=== PATIENT | female | born 1990 | race African-American/Black ===

== ENCOUNTER 2016-05-30 07:08 | Inpatient (IN) | payer BC ==
[~2016-05-30] VITALS: Ht 157.5 cm; Wt 69.4 kg
[2016-05-30] VITALS (7 sets, daily range): BP systolic 97–121; BP diastolic 60–73
[~2016-05-30 07:08] MED LIST: DOCU-27 PO; Ibuprofen PO; ONDA4TAB10 SL; Oxycodone Hcl/Acetaminophen PO; PNV1TABL25 PO; PREN1TAB58 PO; PROM25SU32 PO
[2016-05-30] MEDS ORDERED: IV RINGERS,LACTATED 1000ML 1,000 ML IV SCH ×2 (07:18→07:59)
[2016-05-30] MEDS ORDERED: CITRIC ACID/SODIUM CITRATE 30 ML SOLUTION. PO ONE (07:30)
[2016-05-30 08:00] LABS: HEMATOCRIT 29.5 % (36.0-47.0); HEMOGLOBIN 9.4 g/dL (12.0-15.5); RED BLOOD COUNT 3.54 x10^6/uL (3.50-5.40); RED CELL DISTRIBUTION WIDTH 15.4 % (11.5-14.5); WHITE BLOOD COUNT 10.9 x10^3/uL (4.0-11.0)
[2016-05-30] MEDS ORDERED: ATROPINE 0.5 MG/5 ML DISP.SYRIN. IV PRN (08:00)
[2016-05-30] MEDS ORDERED: ONDANSETRON PF 4 MG/2 ML VIAL. IV PRN ×2 (08:00→11:15)
[2016-05-30] MEDS ORDERED: PROCHLORPERAZINE 10 MG/2 ML VIAL. IV PRN (08:00)
[2016-05-30] MEDS ORDERED: NALOXONE 0.4 MG/ML VIAL. IV PRN (08:00)
[2016-05-30] MEDS ORDERED: CEFAZOLIN 2GM PREMIX 50 ML IV ONE (08:00)
[2016-05-30] MEDS ORDERED: MORPHINE SULFATE 2 MG/ML DISP.SYRIN. IV PRN (08:00)
[2016-05-30] MEDS ORDERED: HYDROMORPHONE 2 MG/ML VIAL. IV PRN (08:00)
[2016-05-30] MEDS ORDERED: FENTANYL PF 100 MCG/2 ML VIAL. IV PRN ×2 (08:00)
[2016-05-30] MEDS ORDERED: LIDOCAINE 1% 1 ML SYRINGE. ID PRN (08:00)
[2016-05-30] MEDS: IV RINGERS,LACTATED 1000ML 1,000 ML IV SCH ×2 (09:01→19:55)
--- NOTE | 2016-05-30 09:51 | PDOC1 ---
OB - History Hx of Present Care: Good Care Ultrasounds: Normal mid trimester US Obstetrical Complications: None Medical Complications: None Past Family/Social History * Past Medical, Surgical, Family and Obstetric Histories reviewed from chart. Rubella: Immune RPR/VDRL: Negative GBS Status: Negative HBsAG: Negative OB - Chief Complaint & HPI Date of Admission: Date of Admission: May 30, 2016 at 07:08 Chief Complaint/History : 2 Para: 1 EGA: 39 Reason for admission: section Indication for : desires repeat Admission Nurse Assessment Rev: Yes Problems: OB - Admission Exam Physical Exam HEENT: Normal Heart: Regular Rate Lungs: Clear Abdomen: Gravid, Non tender, Soft Extremities: Edema Reflexes: Normal Cervical Dilatation: 1cm Effacement: 25% Station: Ballotable Membranes: Intact Heart Rate: Normal Accelerations: Accelerations Present Decelerations: No decelerations Contractions on Admission: >10 Minutes Apart Intensity: Mild Text A: 39 wks IUP Previous c/s P: Admit for repeat c/s. GABRIEL ÁLVAREZ Jr, MD May 30, 2016 09:51
[2016-05-30] MEDS ORDERED: ONDANSETRON PF 4 MG/2 ML VIAL. ONE (09:58)
[2016-05-30] MEDS ORDERED: FAMOTIDINE 20 MG/2 ML VIAL ONE (09:58)
[2016-05-30] MEDS ORDERED: MORPHINE PF 5 MG/10 ML VIAL. ONE (09:59)
[2016-05-30] MEDS ORDERED: OXYTOCIN 10 UNIT/ML VIAL. ONE ×2 (09:59→10:35)
[2016-05-30] MEDS ORDERED: FENTANYL PF 100 MCG/2 ML VIAL. ONE (09:59)
[2016-05-30] MEDS ORDERED: SUCCINYLCHOLINE 200 MG/10 ML VIAL. ONE (09:59)
--- NOTE | 2016-05-30 11:05 | PDOC4 ---
OB Operative Note PRE OP DIAGNOSIS: Previoujs C- section POST OP DIAGNOSIS: Previoujs C- section OPERATION PERFORMED: R [facility] Surgeon Dr. Keller Anesthesia: Regional (Spinal) Blood Loss 500 ml Specimen placenta and infant OB Findings: Position (Vertex), Sex (Female), (8/9), Weight (2940 Gram) Complications none Additional Remarks ptGABRIEL Chavis Jr, MD May 30, 2016 11:05
[2016-05-30] MEDS ORDERED: OXYTOCIN 30 UNIT/500 ML PREMIX 500 ML IV PRN (11:15)
[2016-05-30] MEDS ORDERED: ZOLPIDEM 5 MG TABLET. PO PRN (11:15)
[2016-05-30] MEDS ORDERED: OXYCODONE/APAP 5/325 TABLET. PO PRN (11:15)
[2016-05-30] MEDS ORDERED: 0.9 % SODIUM CHLORIDE 10 ML DISP.SYRIN. IV PRN (11:15)
[2016-05-30] MEDS ORDERED: MAG HYDROX/AL HYDROX/SIMETH 30 ML ORAL.SUSP PO PRN (11:15)
[2016-05-30] MEDS ORDERED: SIMETHICONE 80 MG TAB.CHEW PO PRN (11:15)
[2016-05-30] MEDS ORDERED: DIPHENHYDRAMINE ORAL ELIXIR 12.5 MG/5 ML. PO PRN (11:15)
[2016-05-30] MEDS: KETOROLAC TROMETHAMINE 30 MG/ML SYRINGE. IV PRN (13:39)
[2016-05-30] MEDS ORDERED: FERROUS SULFATE 325 MG TABLET PO SCH (17:00)
--- NOTE | 2016-05-30 22:03 | OP ---
DATE OF SURGERY: PREOPERATIVE DIAGNOSES: 1. Previous . 2. 39 weeks intrauterine . POSTOPERATIVE DIAGNOSES: 1. Previous . 2. 39 weeks intrauterine . PROCEDURE: Repeat low transverse section. SURGEON: Gabriel Keller MD. ANESTHESIA: Spinal. ESTIMATED BLOOD LOSS: 500 mL. COMPLICATIONS: None. FINDINGS: Viable female , Apgars 8 and 9, weight 2940 grams. Three-vessel cord placenta spontaneously intact. SUMMARY: A 26-year-old 2, para 1 at 39 weeks who presented for repeat section. She was counseled on risks, benefits and expectations of repeat section and voiced clear understanding to proceed. DESCRIPTION OF PROCEDURE: The patient was taken to surgery suite and placed in dorsal supine position. She was prepped with ChloraPrep and draped in sterile fashion. After adequate anesthesia, the previous Pfannenstiel skin incision was removed with the aid of a scalpel, Allis clamps and Bovie cautery. We then proceeded with scalpel incision through the fascia. Fascia was extended laterally using curved Armijo scissors. The superior edge of the fascia was grasped with 2 Leana clamps and dissected free of the abdominal rectus muscles using blunt dissection along with Bovie cautery. The same process took place inferiorly. The peritoneum was partially opened and was further incised with Metzenbaum scissors superiorly as well as inferiorly. The Chinmay ring retractor was placed. Low transverse hysterotomy incision was made with scalpel down to the amniotic sac. Hysterotomy incision was extended laterally and superiorly digitally. Amniotomy was performed with Allis clamp, which elicited a large amount of clear fluid. With fundal pressure, the 's head was delivered in a smooth atraumatic manner. With additional fundal pressure, the anterior shoulder was delivered followed by posterior shoulder and rest of the female infant was delivered. was suctioned with bulb syringe orally and nasally, umbilical cord was clamped twice and cut. A viable female was handed to awaiting nursing staff. Umbilical cord blood was then obtained. Three-vessel cord placenta was delivered spontaneously intact. The uterus was exteriorized, cleared of clot and debris with a moist lap. The hysterotomy incision was reapproximated using 1-0 Vicryl suture in a running locked fashion. An imbricated layer of 1-0 Vicryl suture was utilized as well for good hemostasis. The uterus palpated firm. Fallopian tubes and ovaries appeared normal bilaterally. Posterior cul-de-sac was cleared of clot and debris with moist laps. The uterus was returned to the abdomen. Pericolic gutters were cleared of clot and debris with a moist lap. Interceed was placed over the hysterotomy incision in an inverted T fashion. The Chinmay ring retractor was removed. The peritoneum was reapproximated using 1-0 Vicryl suture in running fashion. Fascia was reapproximated using 0 Vicryl suture in a running fashion. Skin was reapproximated using 4-0 Vicryl suture in subcuticular manner. The patient tolerated the procedure well and was taken to recovery room in stable condition. Sponge and needle counts correct x 3. GABRIEL KELLER MD DR: MARTINE/rozina JOB#: [id number] / [id number]
[2016-05-31 03:13] VITALS: BP 111/62
[2016-05-31] MEDS: KETOROLAC TROMETHAMINE 30 MG/ML SYRINGE. IV PRN (05:35)
[2016-05-31 05:47] LABS: BASO # 0.1 x10^3/uL (0.0-0.2); BASO % 0 % (0-3); EOS % 0 % (0-3); HEMATOCRIT 23.8 % (36.0-47.0); HEMOGLOBIN 7.7 g/dL (12.0-15.5); LYMPH # 1.9 x10^3/uL (1.0-4.8); LYMPH % 15 % (24-48); MEAN CORPUSCULAR HEMOGLOBIN 27 pg (25-35); MEAN CORPUSCULAR HGB CONC 32 g/dL (31-37); MEAN CORPUSCULAR VOLUME 82 fL (79-100); MONO % 5 % (0-9); NEUT % 79 % (31-73); PLATELET COUNT 195 x10^3/uL (140-400); RED BLOOD COUNT 2.91 x10^6/uL (3.50-5.40); RED CELL DISTRIBUTION WIDTH 15.7 % (11.5-14.5); WHITE BLOOD COUNT 13.1 x10^3/uL (4.0-11.0)
[2016-05-31 08:32] VITALS: BP 117/68
[2016-05-31] MEDS: IBUPROFEN 800 MG TABLET. PO PRN ×2 (12:35→20:37)
--- NOTE | 2016-05-31 13:44 | PDOC ---
OB Progress Note Date of Service 05/31/16 Time of Evaluation 1340 Problem List Problems Medical Problems: (1) delivery delivered Status: Acute Notes Pt. feeling well. Pain controlled. Ambulating, voiding and tolerating regular diet. Lochia minimal. Lab Laboratory Tests Test 05/30/16 07:40 05/31/16 05:25 White Blood Count 10.9x10^3/uL (4.0-11.0) 13.1x10^3/uL (4.0-11.0) Red Blood Count 3.54x10^6/uL (3.50-5.40) 2.91x10^6/uL (3.50-5.40) Hemoglobin 9.4g/dL (12.0-15.5) 7.7g/dL (12.0-15.5) Hematocrit 29.5% (36.0-47.0) 23.8% (36.0-47.0) Mean Corpuscular Volume 83fL (79-100) 82fL (79-100) Mean Corpuscular Hemoglobin 27pg (25-35) 27pg (25-35) Mean Corpuscular Hemoglobin Concent 32g/dL (31-37) 32g/dL (31-37) Red Cell Distribution Width 15.4% (11.5-14.5) 15.7% (11.5-14.5) Platelet Count 239x10^3/uL (140-400) 195x10^3/uL (140-400) RPR Titer Additional Testing Non reactive (Non Reactive) Neutrophils (%) (Auto) 79% (31-73) Lymphocytes (%) (Auto) 15% (24-48) Monocytes (%) (Auto) 5% (0-9) Eosinophils (%) (Auto) 0% (0-3) Basophils (%) (Auto) 0% (0-3) Neutrophils # (Auto) 10.4x10^3uL (1.8-7.7) Lymphocytes # (Auto) 1.9x10^3/uL (1.0-4.8) Monocytes # (Auto) 0.7x10^3/uL (0.0-1.1) Eosinophils # (Auto) 0.0x10^3/uL (0.0-0.7) Basophils # (Auto) 0.1x10^3/uL (0.0-0.2) Laboratory Tests Test 05/31/16 05:25 White Blood Count 13.1x10^3/uL (4.0-11.0) Red Blood Count 2.91x10^6/uL (3.50-5.40) Hemoglobin 7.7g/dL (12.0-15.5) Hematocrit 23.8% (36.0-47.0) Mean Corpuscular Volume 82fL (79-100) Mean Corpuscular Hemoglobin 27pg (25-35) Mean Corpuscular Hemoglobin Concent 32g/dL (31-37) Red Cell Distribution Width 15.7% (11.5-14.5) Platelet Count 195x10^3/uL (140-400) Neutrophils (%) (Auto) 79% (31-73) Lymphocytes (%) (Auto) 15% (24-48) Monocytes (%) (Auto) 5% (0-9) Eosinophils (%) (Auto) 0% (0-3) Basophils (%) (Auto) 0% (0-3) Neutrophils # (Auto) 10.4x10^3uL (1.8-7.7) Lymphocytes # (Auto) 1.9x10^3/uL (1.0-4.8) Monocytes # (Auto) 0.7x10^3/uL (0.0-1.1) Eosinophils # (Auto) 0.0x10^3/uL (0.0-0.7) Basophils # (Auto) 0.1x10^3/uL (0.0-0.2) Medications Current Medications Lactated Ringer's 1,000 ml @ 1,000 mls/hr Q1H IV Last administered on 09:00; Start 05/30/16 at 07:18; Stop 05/30/16 at 08:17; Status DC Lactated Ringer's 1,000 ml @ 125 mls/hr Q8H IV Last administered on 05/30/16 19:55; Start 05/30/16 at 07:18 Cefazolin Sodium/ Dextrose (Ancef 2gm Premix) 50 ml @ 100 mls/hr 1X ONCE IV Last administered on 05/30/16 09:01; Start 05/30/16 at 08:00; Stop 05/30/16 at 08: 29; Status DC Citric Acid/ Sodium Citrate (Bicitra) 30 ml 1X ONCE PO ; Start 05/30/16 at 07:30 ; Stop 05/30/16 at 07:31; Status DC Ondansetron HCl (Zofran) 4 mg PRN Q6HRS PRN IV Nausea Last administered on t 14:52; Start 05/30/16 at 08:00; Stop 05/30/16 at 18:00; Status DC Fentanyl Citrate (Fentanyl 2ml Vial) 25 mcg PRN Q5MIN PRN IV MILD PAIN; Start 05/30/16 at 08:00; Stop 05/30/16 at 08:08; Status DC Fentanyl Citrate (Fentanyl 2ml Vial) 50 mcg PRN Q5MIN PRN IV MODERATE PAIN; Start 05/30/16 at 08:00; Stop 05/30/16 at 18:00; Status DC Morphine Sulfate 1 mg 1 mg PRN Q10MIN PRN IV SEVERE PAIN; Start 05/30/16 at 08: 00; Stop 05/30/16 at 18:00; Status DC Lactated Ringer's (Iv Lactated Ringers) 1,000 ml @ 30 mls/hr Q24H IV ; Start at 07:59; Stop 05/30/16 at 19:58; Status DC Lidocaine HCl 2 ml 1X PRN PRN ID IV START; Start 05/30/16 at 08:00; Stop at 18:00; Status DC Hydromorphone HCl (Dilaudid) 0.5 mg PRN Q10MIN PRN IV SEV PAIN,Second choice; Start 05/30/16 at 08:00; Stop 05/30/16 at 18:00; Status DC Prochlorperazine Edisylate (Compazine) 5 mg PACU PRN PRN IV NAUSEA; Start at 08:00; Stop 05/30/16 at 18:00; Status DC Atropine Sulfate 0.5 mg PRN 1X PRN IV SEE COMMENTS; Start 05/30/16 at 08:00; Stop 05/31/16 at 07:59; Status DC Naloxone HCl (Narcan) 0.04 mg PRN Q2MIN PRN IV SEE COMMENTS; Start 05/30/16 at 08:00; Stop 05/30/16 at 18:00; Status DC Ondansetron HCl (Zofran) 4 mg STK-MED ONCE .ROUTE ; Start 05/30/16 at 09:58; Stop 05/30/16 at 09:59; Status DC Famotidine (Pepcid) 20 mg STK-MED ONCE .ROUTE ; Start 05/30/16 at 09:58; Stop 05/30/16 at 09:59; Status DC Fentanyl Citrate (Fentanyl 2ml Vial) 100 mcg STK-MED ONCE .ROUTE ; Start at 09:59; Stop 05/30/16 at 10:00; Status DC Oxytocin (Pitocin) 10 unit STK-MED ONCE .ROUTE ; Start 05/30/16 at 09:59; Stop at 10:00; Status DC Morphine Sulfate (Morphine Preservative Free) 5 mg STK-MED ONCE .ROUTE ; Start 05/30/16 at 09:59; Stop 05/30/16 at 10:00; Status DC Succinylcholine Chloride (Anectine) 200 mg STK-MED ONCE .ROUTE ; Start 05/30/16 at 09:59; Stop 05/30/16 at 10:00; Status DC Oxytocin (Pitocin) 10 unit STK-MED ONCE .ROUTE ; Start 05/30/16 at 10:35; Stop at 10:36; Status DC Sodium Chloride 3 ml 3 ml QSHIFT PRN IV AFTER MEDS AND BLOOD DRAWS; Start at 11:15 Oxytocin/Sodium Chloride (Oxytocin Premix Infusion) 500 ml @ 125 mls/hr CONT PRN IV EXCESSIVE POST- BLEEDING; Start 05/30/16 at 11:15; Stop 05/30/16 at 19:14; Status DC Ibuprofen (Motrin) 800 mg PRN Q8HRS PRN PO INFLAMMATION Last administered on t 12:35; Start 05/30/16 at 11:15 Ondansetron HCl (Zofran) 4 mg PRN Q6HRS PRN IV NAUSEA/VOMITING; Start 05/30/16 at 11:15 Docusate Sodium (Colace) 100 mg PRN BID PRN PO CONSTIPATION; Start 05/30/16 at 11:15 Al Hydroxide/Mg Hydroxide (Mylanta Plus Xs) 30 ml PRN Q4HRS PRN PO HEARTBURN / GAS; Start 05/30/16 at 11:15 Simethicone (Gas-X) 80 mg PRN AFTMEALHC PRN PO GAS / BLOATING; Start 05/30/16 at 11:15 Diphenhydramine HCl (Benadryl Oral Elixir) 12.5 mg PRN Q6HRS PRN PO ITCHING; Start 05/30/16 at 11:15 Ferrous Sulfate (Feosol) 325 mg BIDWMEALS PO ; Start 05/30/16 at 17:00 Zolpidem Tartrate (Ambien) 5 mg PRN QHS PRN PO INSOMNIA, MAY REPEAT X1; Start 05/30/16 at 11:15 Oxycodone/ Acetaminophen (Percocet 5/325) 2 tab PRN Q4HRS PRN PO MODERATE PAIN , SEVERE PAIN; Start 05/30/16 at 11:15 Ketorolac Tromethamine (Toradol) 30 mg PRN Q6HRS PRN IV PAIN Last administered on 05/31/16t 05:35; Start 05/30/16 at 11:15; Stop 06/04/16 at 11:14 Active Scripts Active Vitamins ( Vits W-Ca,Fe,Fa(<1MG)) 1 Each Tablet 1 Each PO DAILY Phenergan (Promethazine HCl) 25 Mg Supp.rect 12.5 Mg PO BID Zofran Odt (Ondansetron) 4 Mg Tab.rapdis 1 Tab SL PRN Q8HRS PRN [Oxycodone Hcl/Acetaminophen] 1 TAB Tablet 2 Tab PO PRN Q4HRS PRN [Ibuprofen] 800 MG Tablet 800 Mg PO PRN Q8HRS PRN Colace (Docusate Sodium) 100 Mg Capsule 100 Mg PO PRN BID PRN Reported Tablet (Pnv Cmb#95/Ferrous Fumarate/Fa) 1 Each Tablet 1 Tab PO DAILY Exam Abd: soft, non tender Bandage in place and will be removed during shower. Assessment POD#1 s/p repeat c/s Plan of Care: Continue current Tx, Mgmt GABRIEL ÁLVAREZ Jr, MD May 31, 2016 13:44
[2016-05-31 13:45] VITALS: BP 109/65
[2016-05-31] MEDS: DOCUSATE SODIUM 100 MG CAPSULE PO PRN (20:37)
[2016-05-31 23:00] VITALS: BP 113/70
[2016-06-01] MEDS: IBUPROFEN 800 MG TABLET. PO PRN (06:05)
[2016-06-01 06:23] VITALS: BP 123/76
[2016-06-01] MEDS: DOCUSATE SODIUM 100 MG CAPSULE PO PRN (09:06)
[2016-06-01 09:40] VITALS: BP 107/72
[2016-06-01 12:16] VITALS: BP 108/71
--- NOTE | 2016-06-01 12:43 | PDOC ---
OB Progress Note Date of Service 06/01/16 Time of Evaluation 1240 Problem List Problems Medical Problems: (1) delivery delivered Status: Acute Notes Pt. feeling well. Pain controlled. No complaints. Lab Laboratory Tests Test 05/31/16 05:25 White Blood Count 13.1x10^3/uL (4.0-11.0) Red Blood Count 2.91x10^6/uL (3.50-5.40) Hemoglobin 7.7g/dL (12.0-15.5) Hematocrit 23.8% (36.0-47.0) Mean Corpuscular Volume 82fL (79-100) Mean Corpuscular Hemoglobin 27pg (25-35) Mean Corpuscular Hemoglobin Concent 32g/dL (31-37) Red Cell Distribution Width 15.7% (11.5-14.5) Platelet Count 195x10^3/uL (140-400) Neutrophils (%) (Auto) 79% (31-73) Lymphocytes (%) (Auto) 15% (24-48) Monocytes (%) (Auto) 5% (0-9) Eosinophils (%) (Auto) 0% (0-3) Basophils (%) (Auto) 0% (0-3) Neutrophils # (Auto) 10.4x10^3uL (1.8-7.7) Lymphocytes # (Auto) 1.9x10^3/uL (1.0-4.8) Monocytes # (Auto) 0.7x10^3/uL (0.0-1.1) Eosinophils # (Auto) 0.0x10^3/uL (0.0-0.7) Basophils # (Auto) 0.1x10^3/uL (0.0-0.2) Medications Current Medications Lactated Ringer's 1,000 ml @ 1,000 mls/hr Q1H IV Last administered on 09:00; Start 05/30/16 at 07:18; Stop 05/30/16 at 08:17; Status DC Lactated Ringer's 1,000 ml @ 125 mls/hr Q8H IV Last administered on 05/30/16 19:55; Start 05/30/16 at 07:18 Cefazolin Sodium/ Dextrose (Ancef 2gm Premix) 50 ml @ 100 mls/hr 1X ONCE IV Last administered on 05/30/16t 09:01; Start 05/30/16 at 08:00; Stop 05/30/16 at 08: 29; Status DC Citric Acid/ Sodium Citrate (Bicitra) 30 ml 1X ONCE PO ; Start 05/30/16 at 07:30 ; Stop 05/30/16 at 07:31; Status DC Ondansetron HCl (Zofran) 4 mg PRN Q6HRS PRN IV Nausea Last administered on t 14:52; Start 05/30/16 at 08:00; Stop 05/30/16 at 18:00; Status DC Fentanyl Citrate (Fentanyl 2ml Vial) 25 mcg PRN Q5MIN PRN IV MILD PAIN; Start 05/30/16 at 08:00; Stop 05/30/16 at 08:08; Status DC Fentanyl Citrate (Fentanyl 2ml Vial) 50 mcg PRN Q5MIN PRN IV MODERATE PAIN; Start 05/30/16 at 08:00; Stop 05/30/16 at 18:00; Status DC Morphine Sulfate 1 mg 1 mg PRN Q10MIN PRN IV SEVERE PAIN; Start 05/30/16 at 08: 00; Stop 05/30/16 at 18:00; Status DC Lactated Ringer's (Iv Lactated Ringers) 1,000 ml @ 30 mls/hr Q24H IV ; Start at 07:59; Stop 05/30/16 at 19:58; Status DC Lidocaine HCl 2 ml 1X PRN PRN ID IV START; Start 05/30/16 at 08:00; Stop at 18:00; Status DC Hydromorphone HCl (Dilaudid) 0.5 mg PRN Q10MIN PRN IV SEV PAIN,Second choice; Start 05/30/16 at 08:00; Stop 05/30/16 at 18:00; Status DC Prochlorperazine Edisylate (Compazine) 5 mg PACU PRN PRN IV NAUSEA; Start at 08:00; Stop 05/30/16 at 18:00; Status DC Atropine Sulfate 0.5 mg PRN 1X PRN IV SEE COMMENTS; Start 05/30/16 at 08:00; Stop 05/31/16 at 07:59; Status DC Naloxone HCl (Narcan) 0.04 mg PRN Q2MIN PRN IV SEE COMMENTS; Start 05/30/16 at 08:00; Stop 05/30/16 at 18:00; Status DC Ondansetron HCl (Zofran) 4 mg STK-MED ONCE .ROUTE ; Start 05/30/16 at 09:58; Stop 05/30/16 at 09:59; Status DC Famotidine (Pepcid) 20 mg STK-MED ONCE .ROUTE ; Start 05/30/16 at 09:58; Stop 05/30/16 at 09:59; Status DC Fentanyl Citrate (Fentanyl 2ml Vial) 100 mcg STK-MED ONCE .ROUTE ; Start at 09:59; Stop 05/30/16 at 10:00; Status DC Oxytocin (Pitocin) 10 unit STK-MED ONCE .ROUTE ; Start 05/30/16 at 09:59; Stop at 10:00; Status DC Morphine Sulfate (Morphine Preservative Free) 5 mg STK-MED ONCE .ROUTE ; Start 05/30/16 at 09:59; Stop 05/30/16 at 10:00; Status DC Succinylcholine Chloride (Anectine) 200 mg STK-MED ONCE .ROUTE ; Start 05/30/16 at 09:59; Stop 05/30/16 at 10:00; Status DC Oxytocin (Pitocin) 10 unit STK-MED ONCE .ROUTE ; Start 05/30/16 at 10:35; Stop at 10:36; Status DC Sodium Chloride 3 ml 3 ml QSHIFT PRN IV AFTER MEDS AND BLOOD DRAWS; Start at 11:15 Oxytocin/Sodium Chloride (Oxytocin Premix Infusion) 500 ml @ 125 mls/hr CONT PRN IV EXCESSIVE POST- BLEEDING; Start 05/30/16 at 11:15; Stop 05/30/16 at 19:14; Status DC Ibuprofen (Motrin) 800 mg PRN Q8HRS PRN PO INFLAMMATION Last administered on t 06:05; Start 05/30/16 at 11:15 Ondansetron HCl (Zofran) 4 mg PRN Q6HRS PRN IV NAUSEA/VOMITING; Start 05/30/16 at 11:15 Docusate Sodium (Colace) 100 mg PRN BID PRN PO CONSTIPATION Last administered on 06/01/16 09:06; Start 05/30/16 at 11:15 Al Hydroxide/Mg Hydroxide (Mylanta Plus Xs) 30 ml PRN Q4HRS PRN PO HEARTBURN / GAS; Start 05/30/16 at 11:15 Simethicone (Gas-X) 80 mg PRN AFTMEALHC PRN PO GAS / BLOATING; Start 05/30/16 at 11:15 Diphenhydramine HCl (Benadryl Oral Elixir) 12.5 mg PRN Q6HRS PRN PO ITCHING; Start 05/30/16 at 11:15 Ferrous Sulfate (Feosol) 325 mg BIDWMEALS PO Last administered on 06/01/16 09: 06; Start 05/30/16 at 17:00 Zolpidem Tartrate (Ambien) 5 mg PRN QHS PRN PO INSOMNIA, MAY REPEAT X1; Start 05/30/16 at 11:15 Oxycodone/ Acetaminophen (Percocet 5/325) 2 tab PRN Q4HRS PRN PO MODERATE PAIN , SEVERE PAIN; Start 05/30/16 at 11:15 Ketorolac Tromethamine (Toradol) 30 mg PRN Q6HRS PRN IV PAIN Last administered on 05/31/16 05:35; Start 05/30/16 at 11:15; Stop 06/04/16 at 11:14 Active Scripts Active Vitamins ( Vits W-Ca,Fe,Fa(<1MG)) 1 Each Tablet 1 Each PO DAILY Phenergan (Promethazine HCl) 25 Mg Supp.rect 12.5 Mg PO BID Zofran Odt (Ondansetron) 4 Mg Tab.rapdis 1 Tab SL PRN Q8HRS PRN [Oxycodone Hcl/Acetaminophen] 1 TAB Tablet 2 Tab PO PRN Q4HRS PRN [Ibuprofen] 800 MG Tablet 800 Mg PO PRN Q8HRS PRN Colace (Docusate Sodium) 100 Mg Capsule 100 Mg PO PRN BID PRN Reported Tablet (Pnv Cmb#95/Ferrous Fumarate/Fa) 1 Each Tablet 1 Tab PO DAILY Exam Abd: soft, mild tenderness, fundus firm Incision site: clean, dry and intact Assessment POD#2 s/p repeat c/s Plan of Care: See new orders (D/c home.) GABRIEL ÁLVAREZ Jr, MD Jun 01, 2016 12:43
--- NOTE | 2016-06-01 12:43 | DISCH ---
DISCHARGE INSTRUCTIONS Condition on Discharge Condition on Discharge: Stable Activity After Discharge Activity Instructions for Disc: Activity as tolerated Lifting Instructions after Dis: No heavy lifting Driving Instructions after Dis: Do not drive today Diet after Discharge Diet after Discharge: Regular Contacting the DRHolden after DC Call your doctor for: Concerns you may have Follow-Up Follow up with: Dr. Keller in 2 weeks. GABRIEL KELLER Jr, MD Jun 01, 2016 12:43
[2016-06-01] MEDS ORDERED: OXYC-323 PO (12:45)
[2016-06-01] MEDS ORDERED: DOCU-27 PO (12:45)
[2016-06-01] MEDS ORDERED: IBUP-1060 PO (12:45)
== END 2016-06-01 13:50 | disposition home or self-care (01) | DRG 766 ==
LOC: 3 SO LND 07:08 → 3 NORTH 14:30
PROVIDERS: ADMIT Obstetrics & Gynecology; ATTEND Obstetrics & Gynecology
PROC: 10D00Z1 Extraction of Products of Conception, Low, Open Approach (ICD-10-PCS; principal; 2016-05-30)
DX: O34.211 Maternal care for low transverse scar from previous cesarean delivery (principal); Z37.0 Single live birth; Z3A.39 39 weeks gestation of pregnancy
CPT/HCPCS: 36415; 85027; 86593; 86850; 86900; 86901; J0330; J0690; J1885; J2270; J2405; J2590; J3010; J7120; S0028

== ENCOUNTER 2018-06-21 12:28 | Emergency (ER) | payer MEDICAID ==
[~2018-06-21] VITALS: Ht 157.5 cm; Wt 57.2 kg
[~2018-06-21 12:28] MED LIST changes: +DOCU-109 PO; -DOCU-27 PO; +IBUP-1060 PO; +OXYC1TAB15 PO
[2018-06-21 13:28] LABS: BILIRUBIN,URINE SMALL (NEG); CLARITY,URINE CLOUDY; COLOR,URINE AMBER; NITRITE,URINE NEGATIVE (NEG); PROTEIN,URINE 30 mg/dL (NEG-TRACE); UROBILINOGEN,URINE 0.2 mg/dL (0.2 mg/dL)
[2018-06-21] MEDS ORDERED: ONDANSETRON PF 4 MG/2 ML VIAL. IV ONE (13:30)
[2018-06-21] MEDS ORDERED: IV NORMAL SALINE 1000ML BAG 1,000 ML IV ONE (13:30)
[2018-06-21 13:42] LABS: BASO % 0 % (0-3); EOS % 0 % (0-3); HEMATOCRIT 40.5 % (36.0-47.0); HEMOGLOBIN 13.6 g/dL (12.0-15.5); LYMPH # 1.1 x10^3/uL (1.0-4.8); LYMPH % 12 % (24-48); MEAN CORPUSCULAR HEMOGLOBIN 30 pg (25-35); MEAN CORPUSCULAR HGB CONC 34 g/dL (31-37); MEAN CORPUSCULAR VOLUME 91 fL (79-100); MONO # 0.4 x10^3/uL (0.0-1.1); MONO % 4 % (0-9); NEUT # 7.7 x10^3uL (1.8-7.7); NEUT % 83 % (31-73); PLATELET COUNT 267 x10^3/uL (140-400); RED BLOOD COUNT 4.46 x10^6/uL (3.50-5.40); RED CELL DISTRIBUTION WIDTH 14.6 % (11.5-14.5); WHITE BLOOD COUNT 9.3 x10^3/uL (4.0-11.0)
[2018-06-21 13:43] LABS: BACTERIA,URINE MODERATE /HPF (0-FEW); RBC,URINE 0 /HPF (0-2); SQUAMOUS EPITHELIAL CELL,UR OCC /LPF
[2018-06-21 14:07] LABS: CALCIUM 9.5 mg/dL (8.5-10.1); CREATININE 0.6 mg/dL (0.6-1.0); GFR 146.2; POTASSIUM 3.8 mmol/L (3.5-5.1)
[2018-06-21 14:11] LABS: ALBUMIN/GLOBULIN RATIO 0.9 (1.0-1.7); TOTAL BILIRUBIN 0.9 mg/dL (0.2-1.0); TOTAL PROTEIN 8.6 g/dL (6.4-8.2)
--- NOTE | 2018-06-21 14:46 | RAD ---
Examination: Obstetric ultrasound less than 14 weeks HISTORY: History of vomiting, abdominal pain COMPARISON: None available FINDINGS: The uterus measures 8.7 x 1.6 x 6.6 cm. The left ovary measures 2.1 x 1.7 x 2.1 cm. Blood flow identified in the left ovary. Single living intrauterine identified with heart rate of 171 bpm. The crown-rump length measures 2.0 cm corresponding to 8 weeks and 4 days. Given LMP 05/05/2018. Clinical age 6 weeks and 5 days with estimated date of delivery 02/09/2019. Ultrasound age is 8 weeks and 4 days with estimated date of delivery by ultrasound in 01/27/2019. IMPRESSION: 1. Single living intrauterine with heart rate of 171 bpm. Electronically signed by: Armando Macias MD (06/21/2018 2:43 PM) [email or web address]
[2018-06-21 15:30] VITALS: BP 109/62
--- NOTE | 2018-06-21 15:36 | PHYS DOC ---
Past Medical History Past Medical History: No Pertinent History Past Surgical History: Other Additional Past Surgical Histo: C-SECTIONx2 Alcohol Use: None Drug Use: None Adult General Chief Complaint Chief Complaint: VOMITING IN HPI HPI Patient is a 28 year old female who presents complaining of nausea, vomiting, possible , and slight low back and abdominal pain that began couple days ago. Patient is concerned she could be . Last menstrual cycle was May 01, 2018. She's had 2 pregnancies before this will be the third one. Denies any vaginal bleeding. Denies any unusual discharge or concerns for STDs. Review of Systems Review of Systems Constitutional: Denies fever or chills [] Eyes: Denies change in visual acuity, redness, or eye pain [] HENT: Denies nasal congestion or sore throat [] Respiratory: Denies cough or shortness of breath [] Cardiovascular: No additional information not addressed in HPI [] GI: Reports abdominal pain, nausea, vomiting, denies bloody stools or diarrhea [ ] : Denies dysuria or hematuria [] Musculoskeletal: Reports slight low back pain, denies joint pain [] Integument: Denies rash or skin lesions [] Neurologic: Denies headache, focal weakness or sensory changes [] All other systems were reviewed and found to be within normal limits, except as documented in this note. Current Medications Current Medications Current Medications Medications (Trade) Dose Ordered Sig/Sara Start Time Stop Time Status Last Admin Dose Admin Ondansetron HCl (Zofran) 4 mg 1X ONCE 06/21/18 13:30 06/21/18 13:31 DC 06/21/18 13:36 4 MG Sodium Chloride 1,000 ml @ 1,000 mls/hr 1X ONCE 06/21/18 13:30 06/21/18 14:29 DC 06/21/18 13:37 1,000 MLS/HR Allergies Allergies Allergies Coded Allergies Type Severity Reaction Last Updated Verified No Known Drug Allergies 07/08/14 No Physical Exam Physical Exam Constitutional: Well developed, well nourished, no acute distress, non-toxic appearance. [] HENT: Normocephalic, atraumatic, bilateral external ears normal, oropharynx moist, no oral exudates, nose normal. [] Eyes: PERRLA, EOMI, conjunctiva normal, no discharge. [] Neck: Normal range of motion, no tenderness, supple, no stridor. [] Cardiovascular:Heart rate regular rhythm, no murmur [] Lungs & Thorax: Bilateral breath sounds clear to auscultation [] Abdomen: Bowel sounds normal, soft, no tenderness, no masses, no pulsatile masses. [] Skin: Warm, dry, no erythema, no rash. [] Back: No tenderness, no CVA tenderness. [] Extremities: No tenderness, no cyanosis, no clubbing, ROM intact, no edema. [] Neurologic: Alert and oriented X 3, normal motor function, normal sensory function, no focal deficits noted. [] Psychologic: Affect normal, judgement normal, mood normal. [] Current Patient Data Vital Signs Vital Signs Date Time Temp Pulse Resp B/P (MAP) Pulse Ox O2 Delivery O2 Flow Rate FiO2 06/21/18 12:28 98.1 101 17 115/64 (81) 99 Room Air 98.1 Lab Values Laboratory Tests Test 06/21/18 12:50 06/21/18 13:11 06/21/18 13:20 Urine Color Shanta Urine Clarity Cloudy Urine pH 6.0 Urine Specific [place] >=1.030 Urine Protein 30 mg/dL (NEG-TRACE) Urine Glucose (UA) Negative mg/dL (NEG) Urine Ketones (Stick) >=80 mg/dL (NEG) Urine Blood Negative (NEG) Urine Nitrite Negative (NEG) Urine Bilirubin Small (NEG) Urine Urobilinogen Dipstick 0.2 mg/dL (0.2 mg/dL) Urine Leukocyte Esterase Negative (NEG) Urine RBC 0 /HPF (0-2) Urine WBC 1-4 /HPF (0-4) Urine Squamous Epithelial Cells Occ /LPF Urine Bacteria Moderate /HPF (0-FEW) Urine Mucus Mod /LPF POC Urine HCG, Qualitative Hcg positive (Negative) White Blood Count 9.3 x10^3/uL (4.0-11.0) Red Blood Count 4.46 x10^6/uL (3.50-5.40) Hemoglobin 13.6 g/dL (12.0-15.5) Hematocrit 40.5 % (36.0-47.0) Mean Corpuscular Volume 91 fL (79-100) Mean Corpuscular Hemoglobin 30 pg (25-35) Mean Corpuscular Hemoglobin Concent 34 g/dL (31-37) Red Cell Distribution Width 14.6 % (11.5-14.5) H Platelet Count 267 x10^3/uL (140-400) Neutrophils (%) (Auto) 83 % (31-73) H Lymphocytes (%) (Auto) 12 % (24-48) L Monocytes (%) (Auto) 4 % (0-9) Eosinophils (%) (Auto) 0 % (0-3) Basophils (%) (Auto) 0 % (0-3) Neutrophils # (Auto) 7.7 x10^3uL (1.8-7.7) Lymphocytes # (Auto) 1.1 x10^3/uL (1.0-4.8) Monocytes # (Auto) 0.4 x10^3/uL (0.0-1.1) Eosinophils # (Auto) 0.0 x10^3/uL (0.0-0.7) Basophils # (Auto) 0.0 x10^3/uL (0.0-0.2) Maternal Serum HCG Beta Subunit 196651 mIU/mL (0-5) H Sodium Level 139 mmol/L (136-145) Potassium Level 3.8 mmol/L (3.5-5.1) Chloride Level 101 mmol/L (98-107) Carbon Dioxide Level 20 mmol/L (21-32) L Anion Gap 18 (6-14) H Blood Urea Nitrogen 9 mg/dL (7-20) Creatinine 0.6 mg/dL (0.6-1.0) Estimated GFR (Cockcroft-Gault) 146.2 BUN/Creatinine Ratio 15 (6-20) Glucose Level 73 mg/dL (70-99) Calcium Level 9.5 mg/dL (8.5-10.1) Total Bilirubin 0.9 mg/dL (0.2-1.0) Aspartate Amino Transferase (AST) 18 U/L (15-37) Alanine Aminotransferase (ALT) 17 U/L (14-59) Alkaline Phosphatase 65 U/L (46-116) Total Protein 8.6 g/dL (6.4-8.2) H Albumin 4.0 g/dL (3.4-5.0) Albumin/Globulin Ratio 0.9 (1.0-1.7) L Laboratory Tests 06/21/18 13:20 Laboratory Tests 06/21/18 13:20 EKG EKG [] Radiology/Procedures Radiology/Procedures []PROCEDURE: OB < 14 WKS Examination: Obstetric ultrasound less than 14 weeks HISTORY: History of vomiting, abdominal pain COMPARISON: None available FINDINGS: The uterus measures 8.7 x 1.6 x 6.6 cm. The left ovary measures 2.1 x 1.7 x 2.1 cm. Blood flow identified in the left ovary. Single living intrauterine identified with heart rate of 171 bpm. The crown-rump length measures 2.0 cm corresponding to 8 weeks and 4 days. Given LMP 05/05/2018. Clinical age 6 weeks and 5 days with estimated date of delivery 02/09/2019. Ultrasound age is 8 weeks and 4 days with estimated date of delivery by ultrasound in 01/27/2019. IMPRESSION: 1. Single living intrauterine with heart rate of 171 bpm. Electronically signed by: Armando Macias MD (06/21/2018 2:43 PM) [facility] DICTATED and SIGNED BY: ARMANDO MACIAS MD DATE: 06/21/18 1438 Course & Med Decision Making Course & Med Decision Making Pertinent Labs and Imaging studies reviewed. (See chart for details) This is a 28-year-old female patient presented to the ED today with abdominal pain, nausea, vomiting, concern for . Positive urine hCG, beta-hCG 132, 437. Urine analysis is noted for bacteria-dc with cephalexin. OB ultrasound noted for IUP heart rate 171, 8 weeks. Follow-up with SALES TECHNICIAN as soon as possible. Dragon Disclaimer Dragon Disclaimer This electronic medical record was generated, in whole or in part, using a voice recognition dictation system. Departure Departure Impression: Primary Impression: Nausea and vomiting in Additional Impression: UTI (urinary tract infection) Disposition: 01 HOME, SELF-CARE Condition: STABLE Referrals: NO PCP (PCP) GABRIEL ÁLVAREZ Jr, MD Follow-up in one week Patient Instructions: Hyperemesis Gravidarum, - Urinary Tract Infection Additional Instructions: You were evaluated in the emergency room, you have urinary tract infection, we put you on antibiotics, ensure you complete them. Take Tylenol as needed for pain. We put you and Zofran for nausea vomiting follow-up with your SALES TECHNICIAN. Scripts Ondansetron Hcl (ZOFRAN) 4 Mg Tablet 1 TAB PO Q6HRS PRN for NAUSEA, #30 TAB Prov: ERROL MARINO APRN 06/21/18 Cephalexin (CEPHALEXIN) 500 Mg Capsule 1 CAP PO BID, #14 CAP Prov: ERROL MARINO APRN 06/21/18 Problem Qualifiers Additional Impression: UTI (urinary tract infection) Urinary tract infection type: site unspecified Hematuria presence: without hematuria Qualified Codes: N39.0 - Urinary tract infection, site not specified ERROL MARINO APRN Jun 21, 2018 15:36
[2018-06-21] MEDS ORDERED: ONDA4TAB7 PO (15:58)
[2018-06-21] MEDS ORDERED: CEPH500C PO (15:58)
== END 2018-06-21 16:13 | disposition home or self-care (01) ==
LOC: ER 12:28
DX: O23.41 Unspecified infection of urinary tract in pregnancy, first trimester (principal); O21.9 Vomiting of pregnancy, unspecified; Z3A.01 Less than 8 weeks gestation of pregnancy
CPT/HCPCS: 36415; 76801; 80053; 81001; 81025; 84702; 85025; 87086; 96361; 96374; 99284; J2405; J7030

== ENCOUNTER 2018-12-27 16:26 | Inpatient (IN) | payer OTHER ==
[~2018-12-27] VITALS: Ht 157.5 cm; Wt 71.7 kg
[~2018-12-27 16:26] MED LIST changes: +CEPH500C PO; +ONDA4TAB7 PO
[2018-12-27] MEDS ORDERED: BUTALB/APAP/CAFEIN 50/325/40MG TABLET. PO PRN (17:15)
[2018-12-27 17:41] LABS: BASO # 0.1 x10^3/uL (0.0-0.2); BASO % 1 % (0-3); EOS % 0 % (0-3); HEMATOCRIT 29.9 % (36.0-47.0); HEMOGLOBIN 9.8 g/dL (12.0-15.5); LYMPH # 1.5 x10^3/uL (1.0-4.8); LYMPH % 16 % (24-48); MEAN CORPUSCULAR HEMOGLOBIN 27 pg (25-35); MEAN CORPUSCULAR HGB CONC 33 g/dL (31-37); MEAN CORPUSCULAR VOLUME 83 fL (79-100); MONO # 0.7 x10^3/uL (0.0-1.1); MONO % 7 % (0-9); NEUT # 7.1 x10^3/uL (1.8-7.7); NEUT % 76 % (31-73); PLATELET COUNT 217 x10^3/uL (140-400); RED BLOOD COUNT 3.58 x10^6/uL (3.50-5.40); RED CELL DISTRIBUTION WIDTH 15.7 % (11.5-14.5); WHITE BLOOD COUNT 9.3 x10^3/uL (4.0-11.0)
[2018-12-27 17:42] LABS: BILIRUBIN,URINE NEGATIVE (NEG); CLARITY,URINE CLOUDY; COLOR,URINE YELLOW; NITRITE,URINE NEGATIVE (NEG); PROTEIN,URINE NEGATIVE (NEG-TRACE)
[2018-12-27 17:45] LABS: CREATININE,RANDOM URINE 170.3 mg/dL (Not Establ.)
[2018-12-27 17:51] LABS: BACTERIA,URINE MANY /HPF (0-FEW); RBC,URINE 0 /HPF (0-2); SQUAMOUS EPITHELIAL CELL,UR MANY /LPF
[2018-12-27 17:53] LABS: URIC ACID 5.4 mg/dL (2.6-6.0)
[2018-12-27 18:38] LABS: CALCIUM 9.1 mg/dL (8.5-10.1); CREATININE 0.7 mg/dL (0.6-1.0); GFR 122.4; POTASSIUM 4.4 mmol/L (3.5-5.1)
[2018-12-27 18:45] LABS: ALBUMIN 2.8 g/dL (3.4-5.0); ALBUMIN/GLOBULIN RATIO 0.7 (1.0-1.7); TOTAL BILIRUBIN 0.4 mg/dL (0.2-1.0); TOTAL PROTEIN 6.7 g/dL (6.4-8.2)
[2018-12-27] MEDS: IV RINGERS,LACTATED 1000ML 1,000 ML IV SCH (19:12)
[2018-12-27] MEDS: BETAMET ACET&NA PHOS 30 MG/5 ML VIAL. IM SCH (19:27)
[2018-12-27] MEDS ORDERED: diphenhydrAMINE HCL 25 MG CAPSULE PO PRN (20:45)
[2018-12-27] MEDS: BUTALB/APAP/CAFEIN 50/325/40MG TABLET. PO PRN (21:37)
[2018-12-28] MEDS: IV RINGERS,LACTATED 1000ML 1,000 ML IV SCH ×2 (06:07→20:43)
[2018-12-28 06:28] LABS: CREATININE,RANDOM URINE 30.1 mg/dL (Not Establ.)
[2018-12-28 07:31] LABS: BASO # 0.1 x10^3/uL (0.0-0.2); BASO % 1 % (0-3); EOS % 0 % (0-3); HEMATOCRIT 30.1 % (36.0-47.0); HEMOGLOBIN 9.7 g/dL (12.0-15.5); LYMPH # 1.1 x10^3/uL (1.0-4.8); LYMPH % 9 % (24-48); MEAN CORPUSCULAR HEMOGLOBIN 27 pg (25-35); MEAN CORPUSCULAR HGB CONC 32 g/dL (31-37); MEAN CORPUSCULAR VOLUME 84 fL (79-100); MONO # 0.3 x10^3/uL (0.0-1.1); MONO % 2 % (0-9); NEUT # 11.4 x10^3/uL (1.8-7.7); NEUT % 89 % (31-73); PLATELET COUNT 205 x10^3/uL (140-400); RED BLOOD COUNT 3.59 x10^6/uL (3.50-5.40); RED CELL DISTRIBUTION WIDTH 15.7 % (11.5-14.5); WHITE BLOOD COUNT 12.9 x10^3/uL (4.0-11.0)
[2018-12-28 07:57] LABS: ALBUMIN 2.7 g/dL (3.4-5.0); ALBUMIN/GLOBULIN RATIO 0.6 (1.0-1.7); CALCIUM 9.3 mg/dL (8.5-10.1); CREATININE 0.7 mg/dL (0.6-1.0)
[2018-12-28 07:58] LABS: GFR 122.4; POTASSIUM 4.1 mmol/L (3.5-5.1); TOTAL BILIRUBIN 0.5 mg/dL (0.2-1.0)
--- NOTE | 2018-12-28 08:41 | PDOC1 ---
OB - History Hx of Present Care: Good Care Ultrasounds: Normal mid trimester US Obstetrical Complications: Gestational Hypertension Medical Complications: None Past Family/Social History * Past Medical, Surgical, Family and Obstetric Histories reviewed from chart. Rubella: Immune RPR/VDRL: Negative GBS Status: Unknown HBsAG: Negative OB - Chief Complaint & HPI Date of Admission: Date of Admission: Dec 27, 2018 at 16:26 Chief Complaint/History : 3 Para: 2 EGA: 35 Reason for admission: other (elevated BP and headache) Indication for : desires repeat Admission Nurse Assessment Rev: Yes OB - Admission Exam Physical Exam HEENT: Normal Heart: Regular Rate Lungs: Clear Abdomen: Gravid, Non tender, Soft Extremities: Edema Reflexes: Normal Cervical Dilatation: None Effacement: 25% Station: -3 Membranes: Intact Heart Rate: Normal Accelerations: Accelerations Present Decelerations: No decelerations Contractions on Admission: >10 Minutes Apart Intensity: Mild Text A: 35 wks + 5 days IUP Preeclampsia Previous c/s x 3 H/A P: Admit for preeclampsia. Start corticosteroids. Start magnesium sulfate as well. Plan for repeat c/s once steroids completed. GABRIEL ÁLVAREZ Jr, MD Dec 28, 2018 08:41
[2018-12-28] MEDS ORDERED: CALCIUM GLUCONATE 1,000 MG/10 ML VIAL. IVP PRN (08:45)
[2018-12-28] MEDS ORDERED: MAGNESIUM SULFATE 20GM 500 ML IV SCH (08:45)
[2018-12-28] MEDS ORDERED: MAGNESIUM SULFATE 4GM 100 ML IV ONE (08:45)
[2018-12-28] MEDS ORDERED: ONDANSETRON PF 4 MG/2 ML VIAL. IV PRN (09:15)
[2018-12-28 09:17] LABS: % BANDS 1 % (0-9); % LYMPHS 7 % (24-48); % MONOS 1 % (0-10); % SEGS 91 % (35-66); ANISOCYTOSIS SLIGHT; NUCLEATED RBC 1; PLT ESTIMATE ADEQUATE (ADEQUATE)
[2018-12-28] MEDS: BUTALB/APAP/CAFEIN 50/325/40MG TABLET. PO PRN (09:19)
[2018-12-28] MEDS: MAGNESIUM SULFATE 20GM 500 ML IV SCH ×2 (10:20→20:42)
--- NOTE | 2018-12-28 10:59 | NUR ---
Pt. was brought in under observation this on 12/27/18 for PIH, per pt. symptomatic and lab values reflect pre-eclampsia. Decision for urgent made at 8:15 per physician on 12/28/18, to be scheduled for 0800 on 12/29/18 in order for pt. to receive 2nd dose of steroids for infant lung maturation. Magnesium Sulfate started on pt. at 0936 per physician order for treatment of pre-eclampsia. Decision to make pt. inpt. at 0815 on 12/28/18.
[2018-12-28] MEDS ORDERED: IV RINGERS,LACTATED 1000ML 1,000 ML IV PRN (11:30)
[2018-12-28 13:08] VITALS: BP 145/77
[2018-12-28] MEDS: BETAMET ACET&NA PHOS 30 MG/5 ML VIAL. IM SCH (19:34)
[2018-12-29 06:10] LABS: CREATININE 0.8 mg/dL (0.6-1.0); GFR 104.9; POTASSIUM 4.3 mmol/L (3.5-5.1)
[2018-12-29 06:16] LABS: ALBUMIN 2.9 g/dL (3.4-5.0); ALBUMIN/GLOBULIN RATIO 0.6 (1.0-1.7); TOTAL BILIRUBIN 0.4 mg/dL (0.2-1.0); TOTAL PROTEIN 7.4 g/dL (6.4-8.2)
[2018-12-29 06:31] LABS: BASO % 0 % (0-3); EOS % 0 % (0-3); HEMATOCRIT 29.7 % (36.0-47.0); HEMOGLOBIN 9.5 g/dL (12.0-15.5); LYMPH % 8 % (24-48); MEAN CORPUSCULAR HEMOGLOBIN 27 pg (25-35); MEAN CORPUSCULAR HGB CONC 32 g/dL (31-37); MEAN CORPUSCULAR VOLUME 84 fL (79-100); MONO # 0.4 x10^3/uL (0.0-1.1); MONO % 3 % (0-9); NEUT # 11.3 x10^3/uL (1.8-7.7); NEUT % 89 % (31-73); PLATELET COUNT 250 x10^3/uL (140-400); RED BLOOD COUNT 3.54 x10^6/uL (3.50-5.40); RED CELL DISTRIBUTION WIDTH 16.1 % (11.5-14.5); WHITE BLOOD COUNT 12.8 x10^3/uL (4.0-11.0)
[2018-12-29] MEDS: MAGNESIUM SULFATE 20GM 500 ML IV SCH ×2 (06:50→17:05)
[2018-12-29] MEDS ORDERED: ceFAZolin SODIUM 1 GM in IV DEXTROSE 5% 50 ML IV ONE (07:00)
[2018-12-29] MEDS ORDERED: ceFAZolin SODIUM IV Push 1 GM VIAL. IVP ONE (07:00)
[2018-12-29] MEDS ORDERED: CITRIC ACID/SODIUM CITRATE 30 ML SOLUTION. PO ONE (07:00)
--- NOTE | 2018-12-29 07:51 | PDOC ---
OB Progress Note Date of Service 12/29/18 Time of Evaluation 0745 Notes Pt. with less of a headache this am. She was provided corticosteroids and currently on magnesium sulfate for preeclampsia. Discussed plan of care with repeat c/s. Lab Laboratory Tests Test 12/27/18 17:30 12/28/18 05:50 12/28/18 07:20 12/29/18 05:34 White Blood Count 9.3 x10^3/uL (4.0-11.0) 12.9 x10^3/uL (4.0-11.0) 12.8 x10^3/uL (4.0-11.0) Red Blood Count 3.58 x10^6/uL (3.50-5.40) 3.59 x10^6/uL (3.50-5.40) 3.54 x10^6/uL (3.50-5.40) Hemoglobin 9.8 g/dL (12.0-15.5) 9.7 g/dL (12.0-15.5) 9.5 g/dL (12.0-15.5) Hematocrit 29.9 % (36.0-47.0) 30.1 % (36.0-47.0) 29.7 % (36.0-47.0) Mean Corpuscular Volume 83 fL (79-100) 84 fL (79-100) 84 fL (79-100) Mean Corpuscular Hemoglobin 27 pg (25-35) 27 pg (25-35) 27 pg (25-35) Mean Corpuscular Hemoglobin Concent 33 g/dL (31-37) 32 g/dL (31-37) 32 g/dL (31-37) Red Cell Distribution Width 15.7 % (11.5-14.5) 15.7 % (11.5-14.5) 16.1 % (11.5-14.5) Platelet Count 217 x10^3/uL (140-400) 205 x10^3/uL (140-400) 250 x10^3/uL (140-400) Neutrophils (%) (Auto) 76 % (31-73) 89 % (31-73) 89 % (31-73) Lymphocytes (%) (Auto) 16 % (24-48) 9 % (24-48) 8 % (24-48) Monocytes (%) (Auto) 7 % (0-9) 2 % (0-9) 3 % (0-9) Eosinophils (%) (Auto) 0 % (0-3) 0 % (0-3) 0 % (0-3) Basophils (%) (Auto) 1 % (0-3) 1 % (0-3) 0 % (0-3) Neutrophils # (Auto) 7.1 x10^3/uL (1.8-7.7) 11.4 x10^3/uL (1.8-7.7) 11.3 x10^3/uL (1.8-7.7) Lymphocytes # (Auto) 1.5 x10^3/uL (1.0-4.8) 1.1 x10^3/uL (1.0-4.8) 1.0 x10^3/uL (1.0-4.8) Monocytes # (Auto) 0.7 x10^3/uL (0.0-1.1) 0.3 x10^3/uL (0.0-1.1) 0.4 x10^3/uL (0.0-1.1) Eosinophils # (Auto) 0.0 x10^3/uL (0.0-0.7) 0.0 x10^3/uL (0.0-0.7) 0.0 x10^3/uL (0.0-0.7) Basophils # (Auto) 0.1 x10^3/uL (0.0-0.2) 0.1 x10^3/uL (0.0-0.2) 0.0 x10^3/uL (0.0-0.2) Urine Collection Type Unknown Urine Color Yellow Urine Clarity Cloudy Urine pH 6.0 Urine Specific [place] >=1.030 Urine Protein Negative mg/dL (NEG-TRACE) Urine Glucose (UA) Negative mg/dL (NEG) Urine Ketones (Stick) Negative mg/dL (NEG) Urine Blood Negative (NEG) Urine Nitrite Negative (NEG) Urine Bilirubin Negative (NEG) Urine Urobilinogen Dipstick 1.0 mg/dL (0.2 mg/dL) Urine Leukocyte Esterase Trace (NEG) Urine RBC 0 /HPF (0-2) Urine WBC 5-10 /HPF (0-4) Urine Squamous Epithelial Cells Many /LPF Urine Bacteria Many /HPF (0-FEW) Urine Mucus Mod /LPF Urine Random Creatinine 170.3 mg/dL (Not Establ.) 30.1 mg/dL (Not Establ.) Urine Random Total Protein 42.5 mg/dL (Not Establ.) 7.9 mg/dL (Not Establ.) Urine Protein/Creatinine Ratio 250 mg/g (0-200) 262 mg/g (0-200) Sodium Level 140 mmol/L (136-145) 139 mmol/L (136-145) 139 mmol/L (136-145) Potassium Level 4.4 mmol/L (3.5-5.1) 4.1 mmol/L (3.5-5.1) 4.3 mmol/L (3.5-5.1) Chloride Level 105 mmol/L (98-107) 104 mmol/L (98-107) 104 mmol/L (98-107) Carbon Dioxide Level 24 mmol/L (21-32) 21 mmol/L (21-32) 22 mmol/L (21-32) Anion Gap 11 (6-14) 14 (6-14) 13 (6-14) Blood Urea Nitrogen 9 mg/dL (7-20) 7 mg/dL (7-20) 8 mg/dL (7-20) Creatinine 0.7 mg/dL (0.6-1.0) 0.7 mg/dL (0.6-1.0) 0.8 mg/dL (0.6-1.0) Estimated GFR (Cockcroft-Gault) 122.4 122.4 104.9 BUN/Creatinine Ratio 13 (6-20) 10 (6-20) 10 (6-20) Glucose Level 97 mg/dL (70-99) 107 mg/dL (70-99) 132 mg/dL (70-99) Uric Acid 5.4 mg/dL (2.6-6.0) 5.6 mg/dL (2.6-6.0) Calcium Level 9.1 mg/dL (8.5-10.1) 9.3 mg/dL (8.5-10.1) 8.0 mg/dL (8.5-10.1) Total Bilirubin 0.4 mg/dL (0.2-1.0) 0.5 mg/dL (0.2-1.0) 0.4 mg/dL (0.2-1.0) Aspartate Amino Transf (AST/SGOT) 17 U/L (15-37) 16 U/L (15-37) 15 U/L (15-37) Alanine Aminotransferase (ALT/SGPT) 11 U/L (14-59) 7 U/L (14-59) 9 U/L (14-59) Alkaline Phosphatase 108 U/L (46-116) 102 U/L (46-116) 101 U/L (46-116) Total Protein 6.7 g/dL (6.4-8.2) 7.0 g/dL (6.4-8.2) 7.4 g/dL (6.4-8.2) Albumin 2.8 g/dL (3.4-5.0) 2.7 g/dL (3.4-5.0) 2.9 g/dL (3.4-5.0) Albumin/Globulin Ratio 0.7 (1.0-1.7) 0.6 (1.0-1.7) 0.6 (1.0-1.7) Segmented Neutrophils % 91 % (35-66) Band Neutrophils % 1 % (0-9) Lymphocytes % 7 % (24-48) Monocytes % 1 % (0-10) Nucleated Red Blood Cells 1 Platelet Estimate Adequate (ADEQUATE) Anisocytosis Slight Treponema pallidum Antibody Nonreactive (Nonreactive) Laboratory Tests Test 12/29/18 05:34 White Blood Count 12.8 x10^3/uL (4.0-11.0) Red Blood Count 3.54 x10^6/uL (3.50-5.40) Hemoglobin 9.5 g/dL (12.0-15.5) Hematocrit 29.7 % (36.0-47.0) Mean Corpuscular Volume 84 fL (79-100) Mean Corpuscular Hemoglobin 27 pg (25-35) Mean Corpuscular Hemoglobin Concent 32 g/dL (31-37) Red Cell Distribution Width 16.1 % (11.5-14.5) Platelet Count 250 x10^3/uL (140-400) Neutrophils (%) (Auto) 89 % (31-73) Lymphocytes (%) (Auto) 8 % (24-48) Monocytes (%) (Auto) 3 % (0-9) Eosinophils (%) (Auto) 0 % (0-3) Basophils (%) (Auto) 0 % (0-3) Neutrophils # (Auto) 11.3 x10^3/uL (1.8-7.7) Lymphocytes # (Auto) 1.0 x10^3/uL (1.0-4.8) Monocytes # (Auto) 0.4 x10^3/uL (0.0-1.1) Eosinophils # (Auto) 0.0 x10^3/uL (0.0-0.7) Basophils # (Auto) 0.0 x10^3/uL (0.0-0.2) Sodium Level 139 mmol/L (136-145) Potassium Level 4.3 mmol/L (3.5-5.1) Chloride Level 104 mmol/L (98-107) Carbon Dioxide Level 22 mmol/L (21-32) Anion Gap 13 (6-14) Blood Urea Nitrogen 8 mg/dL (7-20) Creatinine 0.8 mg/dL (0.6-1.0) Estimated GFR (Cockcroft-Gault) 104.9 BUN/Creatinine Ratio 10 (6-20) Glucose Level 132 mg/dL (70-99) Calcium Level 8.0 mg/dL (8.5-10.1) Total Bilirubin 0.4 mg/dL (0.2-1.0) Aspartate Amino Transf (AST/SGOT) 15 U/L (15-37) Alanine Aminotransferase (ALT/SGPT) 9 U/L (14-59) Alkaline Phosphatase 101 U/L (46-116) Total Protein 7.4 g/dL (6.4-8.2) Albumin 2.9 g/dL (3.4-5.0) Albumin/Globulin Ratio 0.6 (1.0-1.7) Medications Current Medications Ringer's Solution 1,000 ml @ 100 mls/hr Q10H IV Last administered on 12/28/18at 20:43; Start 12/27/18 at 17:14 Acetaminophen/ Butalbital/ Caffeine (Fioricet) 2 tab PRN Q6HRS PRN PO MIGRAINE HEADACHE Last administered on 12/27/18at 17:49; Start 12/27/18 at 17:15; Stop 12/27/18 at 20:39; Status DC Betamethasone Sodium Phosphate (Celestone Soluspan) 12 mg Q24H IM Last administered on 12/28/18at 19:34; Start 12/27/18 at 19:00; Stop 12/28/18 at 19:01; Status DC Diphenhydramine HCl (Benadryl) 50 mg PRN QHS PRN PO INSOMNIA Last administered on 12/27/18at 21:04; Start 12/27/18 at 20:45 Acetaminophen/ Butalbital/ Caffeine (Fioricet) 2 tab PRN Q4HRS PRN PO MIGRAINE HEADACHE Last administered on 12/28/18at 09:21; Start 12/27/18 at 20:45 Magnesium Sulfate 100 ml @ 135 mls/hr 1X ONCE IV Last administered on 12/28/18at 09:32; Start 12/28/18 at 08:45; Stop 12/28/18 at 09:29; Status DC Magnesium Sulfate 500 ml @ 50 mls/hr Q10H IV ; Start 12/28/18 at 08:45; Stop 12/28/18 at 10:15; Status DC Calcium Gluconate (Calcium Gluconate) 1,000 mg 1X PRN PRN IVP MAGNESIUM TOXICITY; Start 12/28/18 at 08:45 Ondansetron HCl (Zofran) 4 mg PRN Q6HRS PRN IV NAUSEA/VOMITING; Start 12/28/18 at 09:15 Magnesium Sulfate 500 ml @ 50 mls/hr Q10H IV Last administered on 12/29/18at 06:50; Start 12/28/18 at 10:30 Ringer's Solution 1,000 ml @ 1,000 mls/hr Q1H PRN IV PER PROTOCOL; Start 12/28/18 at 11:30 Cefazolin Sodium 1 gm/Dextrose 50 ml @ 100 mls/hr 1X ONCE IV ; Start 12/29/18 at 07:00; Stop 12/29/18 at 07:29; Status Cancel Citric Acid/ Sodium Citrate (Bicitra) 30 ml 1X ONCE PO Last administered on 12/29/18at 07:45; Start 12/29/18 at 07:00; Stop 12/29/18 at 07:01; Status DC Cefazolin Sodium (Ancef) 1 gm 1X ONCE IVP ; Start 12/29/18 at 07:00; Stop 12/29/18 at 07:01; Status Cancel Cefazolin Sodium 50 ml @ 100 mls/hr 1X ONCE IV ; Start 12/28/18 at 14:45; Stop 12/28/18 at 15:14; Status Cancel Cefazolin Sodium 50 ml @ 100 mls/hr 1X ONCE IV Last administered on 12/29/18at 07:45; Start 12/29/18 at 07:00; Stop 12/29/18 at 07:29; Status DC Active Scripts Active Zofran (Ondansetron Hcl) 4 Mg Tablet 1 Tab PO Q6HRS PRN Cephalexin 500 Mg Capsule 1 Cap PO BID Percocet 5-325 Mg Tablet (Oxycodone/Acetaminophen) 1 Each Tablet 1-2 Tab PO Q4-6HRS Colace (Docusate Sodium) 100 Mg Capsule 1 Cap PO BID Ibuprofen 800 Mg Tablet 800 Mg PO PRN Q6HRS PRN Vitamins ( Vits W-Ca,Fe,Fa(<1MG)) 1 Each Tablet 1 Each PO DAILY Phenergan (Promethazine HCl) 25 Mg Supp.rect 12.5 Mg PO BID Zofran Odt (Ondansetron) 4 Mg Tab.rapdis 1 Tab SL PRN Q8HRS PRN [Oxycodone Hcl/Acetaminophen] 1 TAB Tablet 2 Tab PO PRN Q4HRS PRN [Ibuprofen] 800 MG Tablet 800 Mg PO PRN Q8HRS PRN Colace (Docusate Sodium) 100 Mg Capsule 100 Mg PO PRN BID PRN Reported Tablet (Pnv Cmb#95/Ferrous Fumarate/Fa) 1 Each Tablet 1 Tab PO DAILY Exam Abd: soft, mild tenderness Assessment 36 wks IUP Previous c/s x 2 Preeclampsia Plan of Care: See new orders (Plan for repeat c/s this am. Continue magnesium sulfate 24 hours after delivery.) GABRIEL ÁLVAREZ Jr, MD Dec 29, 2018 07:51
[2018-12-29] MEDS ORDERED: MORPHINE PF 10 MG/10 ML AMPUL. ONE (07:53)
[2018-12-29] MEDS ORDERED: fentaNYL PF VIAL 100 MCG/2 ML VIAL ONE (07:53)
[2018-12-29] MEDS ORDERED: FAMOTIDINE 20 MG/2 ML VIAL ONE (08:12)
[2018-12-29] MEDS ORDERED: ONDANSETRON PF 4 MG/2 ML VIAL. ONE (08:12)
[2018-12-29] MEDS ORDERED: METOCLOPRAMIDE HCL 10 MG/2 ML VIAL. ONE (08:12)
[2018-12-29] MEDS ORDERED: PHENYLEPHRINE in 0.9% NACL PF 1 MG/10 ML SYRINGE. IV ONE (08:13)
[2018-12-29] MEDS ORDERED: OXYTOCIN 10 UNIT/ML VIAL. ONE ×3 (08:23)
[2018-12-29] MEDS ORDERED: miSOPROStol 200 MCG TABLET ONE (08:25)
--- NOTE | 2018-12-29 08:54 | PDOC4 ---
OB Operative Note Date: Dec 29, 2018 PRE OP DIAGNOSIS: Previoujs C- section (Preeclampsia) POST OP DIAGNOSIS: Other (Same) OPERATION PERFORMED: R [facility] Surgeon Dr. Keller Anesthesia: Regional (Spinal) Blood Loss 700 ml Specimen placenta and OB Findings: Position (Vertex), Sex (Male), (1 min), Weight (5 Lb 15 oz.) Complications none Additional Remarks pt. GABRIEL Duffy Jr, MD Dec 29, 2018 08:54
[2018-12-29] MEDS ORDERED: ONDANSETRON PF 4 MG/2 ML VIAL. IV PRN (09:00)
[2018-12-29] MEDS ORDERED: ZOLPIDEM 5 MG TABLET. PO PRN (09:00)
[2018-12-29] MEDS ORDERED: diphenhydrAMINE ORAL ELIXIR 12.5 MG/5 ML ML PO PRN (09:00)
[2018-12-29] MEDS ORDERED: SIMETHICONE 80 MG TAB.CHEW PO PRN (09:00)
[2018-12-29] MEDS ORDERED: MAG HYDROX/ALUMINUM HYD/SIMETH 30 ML ORAL.SUSP PO PRN (09:00)
[2018-12-29] MEDS ORDERED: OXYTOCIN 30 UNIT/500 ML PREMIX 500 ML IV PRN (09:00)
[2018-12-29] MEDS ORDERED: 0.9 % SODIUM CHLORIDE 10 ML DISP.SYRIN. IV PRN (09:00)
[2018-12-29] MEDS ORDERED: oxyCODONE/APAP 5/325 1 TAB TABLET PO PRN (09:00)
[2018-12-29] MEDS: IV RINGERS,LACTATED 1000ML 1,000 ML IV SCH (09:53)
--- NOTE | 2018-12-29 10:10 | RAD ---
OB ultrasound greater than 14 weeks 12/28/2018 Clinical History: Third trimester . Decreased movement. Technique: A real-time ultrasound examination of the gravid uterus was performed. Multiple images were obtained. Findings: Comparison study is dated 09/18/2018. There is a single living IUP. The fetus is in a cephalic position. cardiac and somatic activity is seen. The heart rate is 121 beats per minutes. The maternal cervix is closed. It measures 5 cm in length. The placenta is anterior. No abnormality is seen. The amniotic fluid volume is within normal limits. The JB measures 10.7 cm. Neither maternal ovary is visualized. The following measurements were obtained: BPD 8.88cm 35 weeks 6 days HC 32.13 cm 36weeks to days AC 30.23 cm 34weeks 1 days FL 6.92 cm 35 weeks 4 days The estimated gestational age by ultrasound is 35 weeks 3 days plus or minus a standard deviation of 3 weeks. The estimated date of delivery by ultrasound is 01/29/2019. The estimated weight is 2555 g +/- 378 g (5 lbs. 10 oz.). Since the previous examination has been appropriate interval growth. No abnormality is definitely visualized. There is a normal four-chamber heart. Three-vessel umbilical cord with a normal cord insertion is seen. The urinary bladder, stomach, kidneys are within normal limits. There is limited visualization of the brain and spine due to patient position. Impression: Single living IUP with an estimated gestational age by ultrasound of 35 weeks 3 days +/- a standard deviation of 3 weeks. Since the previous examination there has been appropriate interval growth. Electronically signed by: Tony Craig MD (12/29/2018 10:07 AM) [facility]
[2018-12-29] MEDS: KETOROLAC 30 MG/ML VIAL. IV PRN ×2 (10:11→17:55)
--- NOTE | 2018-12-29 15:04 | OP ---
DATE OF SURGERY: PREOPERATIVE DIAGNOSES: 1. A 36 weeks' intrauterine . 2. Preeclampsia. 3. Previous section x2. POSTOPERATIVE DIAGNOSES: 1. A 36 weeks' intrauterine . 2. Preeclampsia. 3. Previous section x2. PROCEDURE: Repeat low-transverse section. SURGEON: Gabriel Keller MD. ANESTHESIA: Spinal. ESTIMATED BLOOD LOSS: 700 mL. COMPLICATIONS: None. FINDINGS: Viable male infant, Apgars 8 and 9, weight 5 pounds 15 ounces, 3-vessel cord placenta delivered manually intact. SUMMARY: A 28-year-old 3, para 2, at 35 and 5 weeks, presented to clinic with elevated blood pressures. She was then sent over to Labor and Delivery and was then diagnosed with preeclampsia. The patient was provided corticosteroids in the form of betamethasone. Afterwards, she was counseled on undergoing a repeat section. She was counseled on risks, benefits, and expectations and voiced a clear understanding to proceed. DESCRIPTION OF PROCEDURE: The patient was taken to surgery suite, placed in dorsal supine position where she was prepped with ChloraPrep and draped in sterile fashion. After adequate anesthesia, a Pfannenstiel skin incision was made with scalpel down to and through the fascia. The fascia was extended laterally using curved Armijo scissors. The previous skin incision was removed in elliptical fashion using the scalpel and Bovie cautery prior to the dissection of the fascia. Two Leana clamps were placed on the anterior edge of the fascia. The fascia was then dissected free of the abdominal rectus muscles using blunt dissection along with Bovie cautery. Same process took place inferiorly. The abdominal rectus muscles were already retracted laterally. The peritoneum was entered with Metzenbaum scissors. This incision was extended superiorly as well as inferiorly. The Chinmay ring retractor was placed. A low-transverse hysterotomy incision was made with scalpel down to and through the amniotic sac, which there was a moderate amount of clear fluid. The hysterotomy incision was extended laterally and superiorly digitally. With the aid of fundal pressure, the 's head was delivered in a smooth atraumatic manner. With additional fundal pressure, the anterior shoulder was delivered followed by posterior shoulder. Rest of the male infant was delivered. The was suctioned with bulb syringe orally and nasally, umbilical cord was clamped twice and cut and viable male infant was handed to awaiting nursing staff. Umbilical cord blood was then obtained. A 3-vessel cord placenta was delivered manually intact. The uterus was then exteriorized and cleared of clot and debris with a moist lap. Hysterotomy incision was reapproximated using #1 Vicryl suture in running locked fashion. 800 mcg of Cytotec was placed in the uterus prior to the hysterotomy closure and imbricated layer of #1 Vicryl suture was utilized in a running fashion for better hemostasis. The uterus then palpated firm. Fallopian tubes and ovaries appeared normal bilaterally. The posterior cul-de-sac was cleared of clot and debris with a moist lap. The uterus was then returned to the abdomen. The pericolic gutters were cleared of clot and debris with a moist lap. Hysterotomy incision was reviewed and was hemostatic. The Chinmay ring retractor was removed. The peritoneum was reapproximated using #1 Vicryl suture in a running fashion. The fascia was reapproximated using Stratafix in a running fashion. The skin was reapproximated using 4-0 Vicryl suture in subcuticular manner. The patient tolerated the procedure well and was taken to recovery room in stable condition. Sponge and needle count correct x3. GABRIEL KELLER MD DR: MARTINE/rozina JOB#: [id number] / [id number]
[2018-12-30] MEDS: IV RINGERS,LACTATED 1000ML 1,000 ML IV SCH (03:33)
[2018-12-30] MEDS: MAGNESIUM SULFATE 20GM 500 ML IV SCH (03:33)
[2018-12-30] MEDS: KETOROLAC 30 MG/ML VIAL. IV PRN (05:33)
[2018-12-30 05:49] LABS: BASO % 0 % (0-3); EOS % 0 % (0-3); HEMOGLOBIN 8.3 g/dL (12.0-15.5); LYMPH # 1.9 x10^3/uL (1.0-4.8); LYMPH % 12 % (24-48); MEAN CORPUSCULAR HEMOGLOBIN 27 pg (25-35); MEAN CORPUSCULAR HGB CONC 32 g/dL (31-37); MEAN CORPUSCULAR VOLUME 83 fL (79-100); MONO % 7 % (0-9); NEUT # 12.6 x10^3/uL (1.8-7.7); NEUT % 81 % (31-73); PLATELET COUNT 231 x10^3/uL (140-400); RED BLOOD COUNT 3.14 x10^6/uL (3.50-5.40); RED CELL DISTRIBUTION WIDTH 15.8 % (11.5-14.5); WHITE BLOOD COUNT 15.5 x10^3/uL (4.0-11.0)
[2018-12-30] MEDS: FERROUS SULFATE 325 MG TABLET. PO SCH ×2 (08:00→17:00)
--- NOTE | 2018-12-30 10:55 | PDOC ---
OB Progress Note Date of Service 12/30/18 Time of Evaluation 1055 Notes Pt. feeling better. No H/A, CP, or SOB. BP in normal range. Breast feeding without difficulty. Lab Laboratory Tests Test 12/29/18 05:34 12/30/18 05:25 White Blood Count 12.8 x10^3/uL (4.0-11.0) 15.5 x10^3/uL (4.0-11.0) Red Blood Count 3.54 x10^6/uL (3.50-5.40) 3.14 x10^6/uL (3.50-5.40) Hemoglobin 9.5 g/dL (12.0-15.5) 8.3 g/dL (12.0-15.5) Hematocrit 29.7 % (36.0-47.0) 26.0 % (36.0-47.0) Mean Corpuscular Volume 84 fL (79-100) 83 fL (79-100) Mean Corpuscular Hemoglobin 27 pg (25-35) 27 pg (25-35) Mean Corpuscular Hemoglobin Concent 32 g/dL (31-37) 32 g/dL (31-37) Red Cell Distribution Width 16.1 % (11.5-14.5) 15.8 % (11.5-14.5) Platelet Count 250 x10^3/uL (140-400) 231 x10^3/uL (140-400) Neutrophils (%) (Auto) 89 % (31-73) 81 % (31-73) Lymphocytes (%) (Auto) 8 % (24-48) 12 % (24-48) Monocytes (%) (Auto) 3 % (0-9) 7 % (0-9) Eosinophils (%) (Auto) 0 % (0-3) 0 % (0-3) Basophils (%) (Auto) 0 % (0-3) 0 % (0-3) Neutrophils # (Auto) 11.3 x10^3/uL (1.8-7.7) 12.6 x10^3/uL (1.8-7.7) Lymphocytes # (Auto) 1.0 x10^3/uL (1.0-4.8) 1.9 x10^3/uL (1.0-4.8) Monocytes # (Auto) 0.4 x10^3/uL (0.0-1.1) 1.0 x10^3/uL (0.0-1.1) Eosinophils # (Auto) 0.0 x10^3/uL (0.0-0.7) 0.0 x10^3/uL (0.0-0.7) Basophils # (Auto) 0.0 x10^3/uL (0.0-0.2) 0.0 x10^3/uL (0.0-0.2) Sodium Level 139 mmol/L (136-145) Potassium Level 4.3 mmol/L (3.5-5.1) Chloride Level 104 mmol/L (98-107) Carbon Dioxide Level 22 mmol/L (21-32) Anion Gap 13 (6-14) Blood Urea Nitrogen 8 mg/dL (7-20) Creatinine 0.8 mg/dL (0.6-1.0) Estimated GFR (Cockcroft-Gault) 104.9 BUN/Creatinine Ratio 10 (6-20) Glucose Level 132 mg/dL (70-99) Calcium Level 8.0 mg/dL (8.5-10.1) Total Bilirubin 0.4 mg/dL (0.2-1.0) Aspartate Amino Transf (AST/SGOT) 15 U/L (15-37) Alanine Aminotransferase (ALT/SGPT) 9 U/L (14-59) Alkaline Phosphatase 101 U/L (46-116) Total Protein 7.4 g/dL (6.4-8.2) Albumin 2.9 g/dL (3.4-5.0) Albumin/Globulin Ratio 0.6 (1.0-1.7) Laboratory Tests Test 12/30/18 05:25 White Blood Count 15.5 x10^3/uL (4.0-11.0) Red Blood Count 3.14 x10^6/uL (3.50-5.40) Hemoglobin 8.3 g/dL (12.0-15.5) Hematocrit 26.0 % (36.0-47.0) Mean Corpuscular Volume 83 fL (79-100) Mean Corpuscular Hemoglobin 27 pg (25-35) Mean Corpuscular Hemoglobin Concent 32 g/dL (31-37) Red Cell Distribution Width 15.8 % (11.5-14.5) Platelet Count 231 x10^3/uL (140-400) Neutrophils (%) (Auto) 81 % (31-73) Lymphocytes (%) (Auto) 12 % (24-48) Monocytes (%) (Auto) 7 % (0-9) Eosinophils (%) (Auto) 0 % (0-3) Basophils (%) (Auto) 0 % (0-3) Neutrophils # (Auto) 12.6 x10^3/uL (1.8-7.7) Lymphocytes # (Auto) 1.9 x10^3/uL (1.0-4.8) Monocytes # (Auto) 1.0 x10^3/uL (0.0-1.1) Eosinophils # (Auto) 0.0 x10^3/uL (0.0-0.7) Basophils # (Auto) 0.0 x10^3/uL (0.0-0.2) Medications Current Medications Ringer's Solution 1,000 ml @ 100 mls/hr Q10H IV Last administered on 12/30/18 03:33; Start 12/27/18 at 17:14 Acetaminophen/ Butalbital/ Caffeine (Fioricet) 2 tab PRN Q6HRS PRN PO MIGRAINE HEADACHE Last administered on 12/27/18 17:49; Start 12/27/18 at 17:15; Stop 12/27/18 at 20:39; Status DC Betamethasone Sodium Phosphate (Celestone Soluspan) 12 mg Q24H IM Last administered on 12/28/18 19:34; Start 12/27/18 at 19:00; Stop 12/28/18 at 19:01; Status DC Diphenhydramine HCl (Benadryl) 50 mg PRN QHS PRN PO INSOMNIA Last administered on 12/27/18 21:04; Start 12/27/18 at 20:45 Acetaminophen/ Butalbital/ Caffeine (Fioricet) 2 tab PRN Q4HRS PRN PO MIGRAINE HEADACHE Last administered on 12/28/18 09:21; Start 12/27/18 at 20:45 Magnesium Sulfate 100 ml @ 135 mls/hr 1X ONCE IV Last administered on 9/6/19at 09:32; Start 12/28/18 at 08:45; Stop 12/28/18 at 09:29; Status DC Magnesium Sulfate 500 ml @ 50 mls/hr Q10H IV ; Start 12/28/18 at 08:45; Stop 12/28/18 at 10:15; Status DC Calcium Gluconate (Calcium Gluconate) 1,000 mg 1X PRN PRN IVP MAGNESIUM TOXICITY; Start 12/28/18 at 08:45 Ondansetron HCl (Zofran) 4 mg PRN Q6HRS PRN IV NAUSEA/VOMITING; Start 12/28/18 at 09:15; Stop 12/30/18 at 10:37; Status DC Magnesium Sulfate 500 ml @ 50 mls/hr Q10H IV Last administered on 12/30/18at 03:33; Start 12/28/18 at 10:30; Stop 12/30/18 at 10:11; Status DC Ringer's Solution 1,000 ml @ 1,000 mls/hr Q1H PRN IV PER PROTOCOL; Start 12/28/18 at 11:30 Cefazolin Sodium 1 gm/Dextrose 50 ml @ 100 mls/hr 1X ONCE IV ; Start 12/29/18 at 07:00; Stop 12/29/18 at 07:29; Status Cancel Citric Acid/ Sodium Citrate (Bicitra) 30 ml 1X ONCE PO Last administered on 12/29/18at 07:45; Start 12/29/18 at 07:00; Stop 12/29/18 at 07:01; Status DC Cefazolin Sodium (Ancef) 1 gm 1X ONCE IVP ; Start 12/29/18 at 07:00; Stop 12/29/18 at 07:01; Status Cancel Cefazolin Sodium 50 ml @ 100 mls/hr 1X ONCE IV ; Start 12/28/18 at 14:45; Stop 12/28/18 at 15:14; Status Cancel Cefazolin Sodium 50 ml @ 100 mls/hr 1X ONCE IV Last administered on 12/29/18at 07:45; Start 12/29/18 at 07:00; Stop 12/29/18 at 07:29; Status DC Morphine Sulfate (Morphine Preservative Free) 10 mg STK-MED ONCE .ROUTE ; Start 12/29/18 at 07:53; Stop 12/29/18 at 07:53; Status DC Fentanyl Citrate (Fentanyl 2ml Vial) 100 mcg STK-MED ONCE .ROUTE ; Start 12/29/18 at 07:53; Stop 12/29/18 at 07:53; Status DC Famotidine (Pepcid Vial) 20 mg STK-MED ONCE .ROUTE ; Start 12/29/18 at 08:12; Stop 12/29/18 at 08:12; Status DC Ondansetron HCl (Zofran) 4 mg STK-MED ONCE .ROUTE ; Start 12/29/18 at 08:12; Stop 12/29/18 at 08:12; Status DC Metoclopramide HCl (Reglan Vial) 10 mg STK-MED ONCE .ROUTE ; Start 12/29/18 at 08:12; Stop 12/29/18 at 08:13; Status DC Phenylephrine HCl (PHENYLEPHRINE in 0.9% NACL PF) 1 mg STK-MED ONCE IV ; Start 12/29/18 at 08:13; Stop 12/29/18 at 08:13; Status DC Oxytocin (Pitocin) 10 unit STK-MED ONCE .ROUTE ; Start 12/29/18 at 08:23; Stop 12/29/18 at 08:23; Status DC Oxytocin (Pitocin) 10 unit STK-MED ONCE .ROUTE ; Start 12/29/18 at 08:23; Stop 12/29/18 at 08:23; Status DC Oxytocin (Pitocin) 10 unit STK-MED ONCE .ROUTE ; Start 12/29/18 at 08:23; Stop 12/29/18 at 08:23; Status DC Misoprostol (Cytotec 200mcg Tab) 200 mcg STK-MED ONCE .ROUTE ; Start 12/29/18 at 08:25; Stop 12/29/18 at 08:25; Status DC Sodium Chloride (Normal Saline Flush) 3 ml QSHIFT PRN IV AFTER MEDS AND BLOOD DRAWS; Start 12/29/18 at 09:00 Oxytocin/Sodium Chloride 500 ml @ 125 mls/hr CONT PRN IV EXCESSIVE POST- BLEEDING; Start 12/29/18 at 09:00; Stop 12/29/18 at 16:59; Status DC Ibuprofen (Motrin) 800 mg PRN Q4HRS PRN PO INFLAMMATION; Start 12/29/18 at 09:00 Ondansetron HCl (Zofran) 4 mg PRN Q6HRS PRN IV NAUSEA/VOMITING; Start 12/29/18 at 09:00 Docusate Sodium (Colace) 100 mg PRN BID PRN PO CONSTIPATION; Start 12/29/18 at 09:00 Al Hydroxide/Mg Hydroxide (Mylanta Plus Xs) 30 ml PRN Q4HRS PRN PO HEARTBURN / GAS; Start 12/29/18 at 09:00 Simethicone (Gas-X) 80 mg PRN AFTMEALHC PRN PO GAS / BLOATING; Start 12/29/18 at 09:00 Diphenhydramine HCl (Benadryl Oral Elixir) 12.5 mg PRN Q6HRS PRN PO ITCHING; Start 12/29/18 at 09:00 Ferrous Sulfate (Feosol) 325 mg BIDWMEALS PO ; Start 12/29/18 at 17:00 Zolpidem Tartrate (Ambien) 5 mg PRN QHS PRN PO INSOMNIA, MAY REPEAT X1; Start 12/29/18 at 09:00 Oxycodone/ Acetaminophen (Percocet 5/325) 2 tab PRN Q4HRS PRN PO MODERATE PAIN, SEVERE PAIN; Start 12/29/18 at 09:00 Ketorolac Tromethamine (Toradol 30mg Vial) 30 mg PRN Q6HRS PRN IV PAIN Last administered on 12/30/18at 05:33; Start 12/29/18 at 09:00; Stop 01/03/19 at 08:59 Active Scripts Active Zofran (Ondansetron Hcl) 4 Mg Tablet 1 Tab PO Q6HRS PRN Cephalexin 500 Mg Capsule 1 Cap PO BID Percocet 5-325 Mg Tablet (Oxycodone/Acetaminophen) 1 Each Tablet 1-2 Tab PO Q4-6HRS Colace (Docusate Sodium) 100 Mg Capsule 1 Cap PO BID Ibuprofen 800 Mg Tablet 800 Mg PO PRN Q6HRS PRN Vitamins ( Vits W-Ca,Fe,Fa(<1MG)) 1 Each Tablet 1 Each PO DAILY Phenergan (Promethazine HCl) 25 Mg Supp.rect 12.5 Mg PO BID Zofran Odt (Ondansetron) 4 Mg Tab.rapdis 1 Tab SL PRN Q8HRS PRN [Oxycodone Hcl/Acetaminophen] 1 TAB Tablet 2 Tab PO PRN Q4HRS PRN [Ibuprofen] 800 MG Tablet 800 Mg PO PRN Q8HRS PRN Colace (Docusate Sodium) 100 Mg Capsule 100 Mg PO PRN BID PRN Reported Tablet (Pnv Cmb#95/Ferrous Fumarate/Fa) 1 Each Tablet 1 Tab PO DAILY Exam Abd: soft, mild tenderness, fundus firm Bandage in place and dry. Assessment POD#1 s/p repeat c/s Preeclampsia: resolving Plan of Care: Continue current Tx, Mgmt GABRIEL ÁLVAREZ Jr, MD Dec 30, 2018 10:55
[2018-12-30 11:08] LABS: ALBUMIN 2.4 g/dL (3.4-5.0); ALBUMIN/GLOBULIN RATIO 0.7 (1.0-1.7); CALCIUM 7.4 mg/dL (8.5-10.1); CREATININE 0.7 mg/dL (0.6-1.0); GFR 122.4; POTASSIUM 4.7 mmol/L (3.5-5.1); TOTAL BILIRUBIN 0.4 mg/dL (0.2-1.0); TOTAL PROTEIN 5.9 g/dL (6.4-8.2)
[2018-12-30 11:16] VITALS: BP 112/67
[2018-12-30 11:54] VITALS: BP 120/74
[2018-12-30] MEDS: IBUPROFEN 400 MG TABLET. PO PRN ×2 (13:30→20:37)
[2018-12-30 13:37] VITALS: BP 118/74
[2018-12-30 19:20] VITALS: BP 112/57
[2018-12-30] MEDS: DOCUSATE SODIUM 100 MG CAPSULE. PO PRN (20:33)
[2018-12-31] MEDS: IBUPROFEN 400 MG TABLET. PO PRN ×3 (03:40→19:28)
[2018-12-31 05:00] VITALS: BP 119/65
[2018-12-31] MEDS: DOCUSATE SODIUM 100 MG CAPSULE. PO PRN ×2 (08:04→19:28)
[2018-12-31] MEDS: FERROUS SULFATE 325 MG TABLET. PO SCH ×2 (08:04→19:28)
[2018-12-31 10:20] VITALS: BP 117/77
--- NOTE | 2018-12-31 11:09 | PDOC ---
OB Progress Note Date of Service 12/31/18 Time of Evaluation 1105 Notes Pt. feeling well. No complaints. Lab Laboratory Tests Test 12/30/18 05:00 12/30/18 05:25 Sodium Level 136 mmol/L (136-145) Potassium Level 4.7 mmol/L (3.5-5.1) Chloride Level 102 mmol/L (98-107) Carbon Dioxide Level 31 mmol/L (21-32) Anion Gap 3 (6-14) Blood Urea Nitrogen 11 mg/dL (7-20) Creatinine 0.7 mg/dL (0.6-1.0) Estimated GFR (Cockcroft-Gault) 122.4 BUN/Creatinine Ratio 16 (6-20) Glucose Level 88 mg/dL (70-99) Calcium Level 7.4 mg/dL (8.5-10.1) Total Bilirubin 0.4 mg/dL (0.2-1.0) Aspartate Amino Transf (AST/SGOT) 20 U/L (15-37) Alanine Aminotransferase (ALT/SGPT) 8 U/L (14-59) Alkaline Phosphatase 86 U/L (46-116) Total Protein 5.9 g/dL (6.4-8.2) Albumin 2.4 g/dL (3.4-5.0) Albumin/Globulin Ratio 0.7 (1.0-1.7) White Blood Count 15.5 x10^3/uL (4.0-11.0) Red Blood Count 3.14 x10^6/uL (3.50-5.40) Hemoglobin 8.3 g/dL (12.0-15.5) Hematocrit 26.0 % (36.0-47.0) Mean Corpuscular Volume 83 fL (79-100) Mean Corpuscular Hemoglobin 27 pg (25-35) Mean Corpuscular Hemoglobin Concent 32 g/dL (31-37) Red Cell Distribution Width 15.8 % (11.5-14.5) Platelet Count 231 x10^3/uL (140-400) Neutrophils (%) (Auto) 81 % (31-73) Lymphocytes (%) (Auto) 12 % (24-48) Monocytes (%) (Auto) 7 % (0-9) Eosinophils (%) (Auto) 0 % (0-3) Basophils (%) (Auto) 0 % (0-3) Neutrophils # (Auto) 12.6 x10^3/uL (1.8-7.7) Lymphocytes # (Auto) 1.9 x10^3/uL (1.0-4.8) Monocytes # (Auto) 1.0 x10^3/uL (0.0-1.1) Eosinophils # (Auto) 0.0 x10^3/uL (0.0-0.7) Basophils # (Auto) 0.0 x10^3/uL (0.0-0.2) Medications Current Medications Ringer's Solution 1,000 ml @ 100 mls/hr Q10H IV Last administered on 12/30/18at 03:33; Start 12/27/18 at 17:14; Stop 12/30/18 at 11:50; Status DC Acetaminophen/ Butalbital/ Caffeine (Fioricet) 2 tab PRN Q6HRS PRN PO MIGRAINE HEADACHE Last administered on 12/27/18at 17:49; Start 12/27/18 at 17:15; Stop 12/27/18 at 20:39; Status DC Betamethasone Sodium Phosphate (Celestone Soluspan) 12 mg Q24H IM Last administered on 12/28/18at 19:34; Start 12/27/18 at 19:00; Stop 12/28/18 at 19:01; Status DC Diphenhydramine HCl (Benadryl) 50 mg PRN QHS PRN PO INSOMNIA Last administered on 12/27/18at 21:04; Start 12/27/18 at 20:45 Acetaminophen/ Butalbital/ Caffeine (Fioricet) 2 tab PRN Q4HRS PRN PO MIGRAINE HEADACHE Last administered on 12/28/18at 09:21; Start 12/27/18 at 20:45 Magnesium Sulfate 100 ml @ 135 mls/hr 1X ONCE IV Last administered on 12/28/18at 09:32; Start 12/28/18 at 08:45; Stop 12/28/18 at 09:29; Status DC Magnesium Sulfate 500 ml @ 50 mls/hr Q10H IV ; Start 12/28/18 at 08:45; Stop 12/28/18 at 10:15; Status DC Calcium Gluconate (Calcium Gluconate) 1,000 mg 1X PRN PRN IVP MAGNESIUM TOXICITY; Start 12/28/18 at 08:45; Stop 12/30/18 at 11:50; Status DC Ondansetron HCl (Zofran) 4 mg PRN Q6HRS PRN IV NAUSEA/VOMITING; Start 12/28/18 at 09:15; Stop 12/30/18 at 10:37; Status DC Magnesium Sulfate 500 ml @ 50 mls/hr Q10H IV Last administered on 12/30/18at 03:33; Start 12/28/18 at 10:30; Stop 12/30/18 at 10:11; Status DC Ringer's Solution 1,000 ml @ 1,000 mls/hr Q1H PRN IV PER PROTOCOL; Start 12/28/18 at 11:30; Stop 12/30/18 at 11:50; Status DC Cefazolin Sodium 1 gm/Dextrose 50 ml @ 100 mls/hr 1X ONCE IV ; Start 12/29/18 at 07:00; Stop 12/29/18 at 07:29; Status Cancel Citric Acid/ Sodium Citrate (Bicitra) 30 ml 1X ONCE PO Last administered on 12/29/18at 07:45; Start 12/29/18 at 07:00; Stop 12/29/18 at 07:01; Status DC Cefazolin Sodium (Ancef) 1 gm 1X ONCE IVP ; Start 12/29/18 at 07:00; Stop 12/29/18 at 07:01; Status Cancel Cefazolin Sodium 50 ml @ 100 mls/hr 1X ONCE IV ; Start 12/28/18 at 14:45; Stop 12/28/18 at 15:14; Status Cancel Cefazolin Sodium 50 ml @ 100 mls/hr 1X ONCE IV Last administered on 12/29/18at 07:45; Start 12/29/18 at 07:00; Stop 12/29/18 at 07:29; Status DC Morphine Sulfate (Morphine Preservative Free) 10 mg STK-MED ONCE .ROUTE ; Start 12/29/18 at 07:53; Stop 12/29/18 at 07:53; Status DC Fentanyl Citrate (Fentanyl 2ml Vial) 100 mcg STK-MED ONCE .ROUTE ; Start 12/29/18 at 07:53; Stop 12/29/18 at 07:53; Status DC Famotidine (Pepcid Vial) 20 mg STK-MED ONCE .ROUTE ; Start 12/29/18 at 08:12; Stop 12/29/18 at 08:12; Status DC Ondansetron HCl (Zofran) 4 mg STK-MED ONCE .ROUTE ; Start 12/29/18 at 08:12; Stop 12/29/18 at 08:12; Status DC Metoclopramide HCl (Reglan Vial) 10 mg STK-MED ONCE .ROUTE ; Start 12/29/18 at 08:12; Stop 12/29/18 at 08:13; Status DC Phenylephrine HCl (PHENYLEPHRINE in 0.9% NACL PF) 1 mg STK-MED ONCE IV ; Start 12/29/18 at 08:13; Stop 12/29/18 at 08:13; Status DC Oxytocin (Pitocin) 10 unit STK-MED ONCE .ROUTE ; Start 12/29/18 at 08:23; Stop 12/29/18 at 08:23; Status DC Oxytocin (Pitocin) 10 unit STK-MED ONCE .ROUTE ; Start 12/29/18 at 08:23; Stop 12/29/18 at 08:23; Status DC Oxytocin (Pitocin) 10 unit STK-MED ONCE .ROUTE ; Start 12/29/18 at 08:23; Stop 12/29/18 at 08:23; Status DC Misoprostol (Cytotec 200mcg Tab) 200 mcg STK-MED ONCE .ROUTE ; Start 12/29/18 at 08:25; Stop 12/29/18 at 08:25; Status DC Sodium Chloride (Normal Saline Flush) 3 ml QSHIFT PRN IV AFTER MEDS AND BLOOD DRAWS; Start 12/29/18 at 09:00; Stop 12/30/18 at 11:50; Status DC Oxytocin/Sodium Chloride 500 ml @ 125 mls/hr CONT PRN IV EXCESSIVE POST- BLEEDING; Start 12/29/18 at 09:00; Stop 12/29/18 at 16:59; Status DC Ibuprofen (Motrin) 800 mg PRN Q4HRS PRN PO INFLAMMATION Last administered on 12/30/18at 20:37; Start 12/29/18 at 09:00; Stop 12/31/18 at 01:34; Status DC Ondansetron HCl (Zofran) 4 mg PRN Q6HRS PRN IV NAUSEA/VOMITING; Start 12/29/18 at 09:00; Stop 12/30/18 at 14:49; Status DC Docusate Sodium (Colace) 100 mg PRN BID PRN PO CONSTIPATION Last administered on 12/31/18at 08:04; Start 12/29/18 at 09:00 Al Hydroxide/Mg Hydroxide (Mylanta Plus Xs) 30 ml PRN Q4HRS PRN PO HEARTBURN / GAS; Start 12/29/18 at 09:00 Simethicone (Gas-X) 80 mg PRN AFTMEALHC PRN PO GAS / BLOATING; Start 12/29/18 at 09:00 Diphenhydramine HCl (Benadryl Oral Elixir) 12.5 mg PRN Q6HRS PRN PO ITCHING; Start 12/29/18 at 09:00 Ferrous Sulfate (Feosol) 325 mg BIDWMEALS PO Last administered on 12/31/18at 08:04; Start 12/29/18 at 17:00 Zolpidem Tartrate (Ambien) 5 mg PRN QHS PRN PO INSOMNIA, MAY REPEAT X1; Start 12/29/18 at 09:00 Oxycodone/ Acetaminophen (Percocet 5/325) 2 tab PRN Q4HRS PRN PO MODERATE PAIN, SEVERE PAIN; Start 12/29/18 at 09:00 Ketorolac Tromethamine (Toradol 30mg Vial) 30 mg PRN Q6HRS PRN IV PAIN Last administered on 12/30/18at 05:33; Start 12/29/18 at 09:00; Stop 12/30/18 at 14:49; Status DC Ibuprofen (Motrin) 800 mg PRN Q6HRS PRN PO INFLAMMATION Last administered on 12/31/18at 03:40; Start 12/31/18 at 01:45 Acetaminophen (Tylenol) 650 mg PRN Q6HRS PRN PO PAIN; Start 12/31/18 at 01:45 Active Scripts Active Zofran (Ondansetron Hcl) 4 Mg Tablet 1 Tab PO Q6HRS PRN Cephalexin 500 Mg Capsule 1 Cap PO BID Percocet 5-325 Mg Tablet (Oxycodone/Acetaminophen) 1 Each Tablet 1-2 Tab PO Q4-6HRS Colace (Docusate Sodium) 100 Mg Capsule 1 Cap PO BID Ibuprofen 800 Mg Tablet 800 Mg PO PRN Q6HRS PRN Vitamins ( Vits W-Ca,Fe,Fa(<1MG)) 1 Each Tablet 1 Each PO DAILY Phenergan (Promethazine HCl) 25 Mg Supp.rect 12.5 Mg PO BID Zofran Odt (Ondansetron) 4 Mg Tab.rapdis 1 Tab SL PRN Q8HRS PRN [Oxycodone Hcl/Acetaminophen] 1 TAB Tablet 2 Tab PO PRN Q4HRS PRN [Ibuprofen] 800 MG Tablet 800 Mg PO PRN Q8HRS PRN Colace (Docusate Sodium) 100 Mg Capsule 100 Mg PO PRN BID PRN Reported Tablet (Pnv Cmb#95/Ferrous Fumarate/Fa) 1 Each Tablet 1 Tab PO DAILY Exam Abd: soft, mild tenderness, fundus firm Incision site: clean, dry and intact Assessment POD#2 s/p c/s Plan of Care: Continue current Tx, Mgmt GABRIEL ÁLVAREZ Jr, MD Dec 31, 2018 11:09
[2018-12-31] MEDS ORDERED: MAGNESIUM HYDROXIDE 2,400 MG/30 ML ORAL.SUSP. PO PRN (12:00)
[2018-12-31 15:20] VITALS: BP 119/78
[2018-12-31 19:05] VITALS: BP 112/66
[2019-01-01] MEDS: ACETAMINOPHEN 325 MG TABLET. PO PRN ×2 (01:15→10:01)
[2019-01-01] MEDS: IBUPROFEN 400 MG TABLET. PO PRN ×2 (01:36→07:28)
[2019-01-01 06:25] VITALS: BP 130/80
[2019-01-01] MEDS: DOCUSATE SODIUM 100 MG CAPSULE. PO PRN (07:27)
[2019-01-01] MEDS: FERROUS SULFATE 325 MG TABLET. PO SCH (07:28)
--- NOTE | 2019-01-01 08:44 | PDOC3 ---
OB DISCHARGE SUMMARY DATE OF ADMISSION: 12/27/18 DATE OF DISCHARGE: 01/01/19 REASON FOR ADMISSION: section PROCEDURES: Others (preeclampsia) INTRAPARTUM PROCEDURES: : Low Cerv Trans DISCHARGE DIAGNOSIS: Others (36 wks gestation) DISCHARGE INFORMATION: Activity (ad kevon), Diet (regular), Instructions (pelvic rest x 6 wks, no driving x 2 wks, no lifting > 20 lbs. x 4 wks) HOSPITAL COURSE 36 wks IUP with preeclampsia delivered via repeat section without complications. GABRIEL ÁLVAREZ Jr, MD Jan 01, 2019 08:44
[2019-01-01] MEDS ORDERED: IBUP-1060 PO (08:46)
[2019-01-01] MEDS ORDERED: DOCU-109 PO (08:46)
[2019-01-01] MEDS ORDERED: OXYC1TAB15 PO (08:46)
--- NOTE | 2019-01-01 08:47 | DISCH ---
DISCHARGE INSTRUCTIONS Condition on Discharge Condition on Discharge: Stable Activity After Discharge Activity Instructions for Disc: Activity as tolerated Bathing Instructions: Shower-keep dressing dry, No Tub Bath until see Lifting Instructions after Dis: No heavy lifting, Do not lift >10 pounds Exercise Instruction after Dis: Progress as tolerated Driving Instructions after Dis: No driving for 2 weeks Weight Bearing Status after Di: As tolerated Diet after Discharge Diet after Discharge: Regular Wound Incision Care Wound/Incision Care: Ice to area for comfort, Keep wound/cast CDI, May get incision wet Checks after Discharge Checks after discharge: Check your Temp as needed Contacting the DRHolden after DC Call your doctor for: Concerns you may have Follow-Up Follow up with: Dr. Keller in 2 wks. GABRIEL KELLER Jr, MD Jan 01, 2019 08:47
--- NOTE | 2019-01-01 09:35 | NUR ---
home instructions gone over with pt. states no quest on care/ to see dr june in 2 weeks
[2019-01-01 10:45] VITALS: BP 126/78
== END 2019-01-01 11:11 | disposition home or self-care (01) | DRG 788 ==
LOC: 3 SO LND 16:26 → OBSVTOIN 12-28 10:56 → 3 SO LND 12-30 11:29
PROVIDERS: ADMIT Obstetrics & Gynecology; ATTEND Obstetrics & Gynecology
PROC: 10D00Z1 Extraction of Products of Conception, Low, Open Approach (ICD-10-PCS; principal; 2018-12-29)
DX: O14.94 Unspecified pre-eclampsia, complicating childbirth (principal); O34.211 Maternal care for low transverse scar from previous cesarean delivery; Z37.0 Single live birth; Z3A.36 36 weeks gestation of pregnancy
CPT/HCPCS: 36415; 76805; 80053; 81001; 82570; 84156; 84450; 84460; 84550; 85007; 85025; 86592; 86850; 86900; 86901; 86920; 87086; G0378; G0379; J0690; J0702; J1885; J2274; J2370; J2405; J2590; J2765; J3010; J3475; J3490; J7120; Q0163